=== PATIENT | female | born 1945 | race Caucasian/White ===

== ENCOUNTER 2017-07-31 13:53 | Inpatient (IN) | payer OTHER, SELFPAY ==
[~2017-07-31] VITALS: Ht 157.5 cm; Wt 67.6 kg
[~2017-07-31 13:53] MED LIST: ALENDRONATE SOD70 MG PO; AMITRIPTYLINE H25 M2 PO; APAP500 PO; ASPIR 8181 MG PO; AZITHROMYCIN 2250 MG PO; BAYER CHEWABLE81 MG PO; CALCIUM 600 +1 EAC1 PO; CEFUROXIME250 MG PO; CYMBALTA30 MG PO; FOLIC ACID1 MG PO; GABAPENTIN600 M1 PO; HYDROCODONE-AP1 EAC6 PO; IBUPROFEN 200200 M1 PO; IRON PO; KEPPRA 500 MG500 M1 PO; KEPPRA 500 MG500 M2 PO; LASIX 20 MG TAB20 MG PO; LIDODERM1 EACH TRANSDERM; LISINOPRIL10 MG PO; NEURONTIN 300300 M1 PO; NITROFURANTOIN PO; NITROFURANTOIN100 MG PO; OMEPRAZOLE 20 M20 M1 PO; OXYBUTYNIN 5 MG5 M2 PO; OXYCODONE HCL 55 MG PO; OXYCONTIN10 M1 PO; POTASSIUM20 PO; PROBIOTIC1 EAC1 PO; PROBIOTIC1 EAC2 PO; TOPAMAX 25 MG T25 M1 PO; VITAMIN B-12500 MCG PO; VITAMIN D1000 UNI1 PO
[2017-07-31 13:58] VITALS: BP 144/52
[2017-07-31 15:33] LABS: ABSOLUTE BASOPHILS 0.1 thou/uL (0.0-0.2); ABSOLUTE LYMPHOCYTES 4.2 thou/uL (0.8-5.3); ABSOLUTE MONOCYTES 1.5 thou/uL (0.0-1.2); ABSOLUTE NEUTROPHILS 9.6 thou/uL (1.6-8.1); BASOPHILS 0.7 %; EOSINOPHILS 0.3 %; HEMATOCRIT 41.9 % (37.0-47.0); HEMOGLOBIN 13.7 gm/dL (12.0-15.0); LYMPHOCYTES 27.1 %; MCHC 32.6 g/dL (28.0-37.0); MCV 107.2 fL (80.0-100.0); MONOCYTES 9.8 %; NUCLEATED RBCS 0 /100WBC; PLATELET COUNT* 350 thou/uL (150-400); POLYS 62.1 %; RBC 3.91 mil/uL (4.20-5.00); RDW-CV 14.6 % (10.5-14.5); WBC 15.5 thou/uL (4.0-11.0)
[2017-07-31 15:39] LABS: URINE BLOOD TRACE (Negative); URINE CLARITY CLEAR; URINE COLOR YELLOW; URINE GLUCOSE-RANDOM NEGATIVE (Negative); URINE KETONES NEGATIVE (Negative); URINE LEUKOCYTES-REFLEX TRACE (Negative); URINE NITRITE-REFLEX NEGATIVE (Negative); URINE PROTEIN NEGATIVE (Negative); URINE SPECIFIC GRAVITY 1.015 (1.005-1.030)
[2017-07-31 15:41] LABS: ICTOTEST (BILI CONFIRMATORY) Negative (Negative); URINE BILIRUBIN 1+ (Negative)
[2017-07-31 15:46] LABS: HYALINE CASTS 0-3 Few /LPF (None Seen); MUCUS 0-3 Light strn/LPF (None Seen); SQUAMOUS >10 Many /LPF (0-3)
[2017-07-31 15:47] LABS: URINE RBC 0-2 Rare /HPF (0-2)
[2017-07-31 15:48] LABS: CRYSTALS None Seen /LPF (None Seen); URINE WBC-REFLEX 0-5 Rare /HPF (0-5)
[2017-07-31 15:49] LABS: BACTERIA-REFLEX 1-9 Few /HPF (None Seen)
[2017-07-31 15:54] LABS: ANION GAP 15 mmol/L (7-16); BUN 15 mg/dL (7-18); CALCIUM 9.2 mg/dL (8.5-10.1); CHLORIDE 102 mmol/L (98-107); CO2 23 mmol/L (21-32); CREATININE 0.9 mg/dL (0.6-1.3); GLUCOSE 129 mg/dL (70-99); POTASSIUM 3.8 mmol/L (3.5-5.1); SODIUM 140 mmol/L (136-145)
[2017-07-31 15:56] LABS: AMP/METHAMP Negative (Negative); BARBITURATES Negative (Negative); BENZODIAZEPINES Negative (Negative); COCAINE Negative (Negative); METHADONE Negative (Negative); OPIATES POSITIVE (Negative); PCP Negative (Negative); THC Negative (Negative)
[2017-07-31 15:59] LABS: ALBUMIN 3.6 g/dL (3.4-5.0); ALKALINE PHOSPHATASE 705 U/L (46-116); SGOT 61 U/L (15-37); SGPT 61 U/L (30-65); TOTAL BILIRUBIN 0.6 mg/dL (<0.1-1.0); TOTAL PROTEIN 7.7 g/dL (6.4-8.2); TROPONIN-I LEVEL <0.06 ng/mL (<0.06)
[2017-07-31 19:59] VITALS: BP 142/58
[2017-07-31 20:00] VITALS: BP 143/56
[2017-08-01 00:34] VITALS: BP 124/40
[2017-08-01 04:04] VITALS: BP 126/57
--- NOTE | 2017-08-01 04:12 | NUR ---
RECEIVED REPORT FROM ER NURSE KIZZY AT 193. PT ARRIVED TO UNIT AT 194. PT ALERT, ORIENTED TO SELF ONLY. UNABLE TO VOICE CONCERNS UPON ARRIVAL, NO APPARENT PAIN, EDUCATED PT ON USE OF CALL LIGHT, CALL LIGHT LEFT WITHIN REACH. PT TEMP 100.7 UPON ARRIVAL TO UNIT, OFFERED TYLENOL PO BUT PATIENT REFUSED TO TAKE IT STATING SHE COULD NOT SWALLOW PILLS. DR. GIRON CONTACTED AND NEW ORDERS RECEIVED FOR TYLENOL SUPPOSITORY. MEDICATION ADMINISTERED ORDERED. PT TEMP AT RECHECK 98.7. PT HEARD TALKING TO SELF DURING THE NIGHT, CONTINUES TO BE ORIENTED TO SELF ONLY, FORGETFUL. CALL LIGHT REMAINS WITHIN REACH. ON TELE MONITOR TRACING AFIB THIS SHIFT.
[2017-08-01 05:01] LABS: HEMATOCRIT 35.5 % (37.0-47.0); HEMOGLOBIN 11.6 gm/dL (12.0-15.0); MCH 34.2 pg (26.0-34.0); MCHC 32.6 g/dL (28.0-37.0); MCV 104.9 fL (80.0-100.0); MPV 9.8 fl. (7.2-11.1); RBC 3.39 mil/uL (4.20-5.00); RDW-CV 14.1 % (10.5-14.5); WBC 14.8 thou/uL (4.0-11.0)
[2017-08-01 05:13] LABS: CALCIUM 7.6 mg/dL (8.5-10.1); CREATININE 0.8 mg/dL (0.6-1.3); POTASSIUM 3.6 mmol/L (3.5-5.1)
--- NOTE | 2017-08-01 06:59 | NUR ---
PO ACETAMINOPHEN ADMINISTERED FOR PAIN THIS SHIFT, PT ABLE TO SWALLOW LIQUIDS WITHOUT COUGHING, PT STATED SHE COULD SWALLOW PILLS, NO CHOCKING OBSERVED. PT CONVERTED TO SINUS RHYTHM AT 0552. CONTINUES TO TRACE SINUS RHYTHM WITH PVCS THIS SHIFT. PT CONTINUES TO BE CONFUSED, ORIENTED TO SELF ONLY. SEIZURE PRECAUTIONS IN PLACE FOR HX OF SEIZURES. PT VOICED NO CONCERNS THIS SHIFT. CALL LIGHT WITHIN REACH. FALL PRECAUTIONS IN PLACE.
[2017-08-01 08:00] VITALS: BP 141/61
[2017-08-01 11:59] VITALS: BP 137/57
[2017-08-01 16:49] VITALS: BP 131/68
--- NOTE | 2017-08-01 17:59 | NUR ---
PATIENT RESTING IN BED. PATINET IS AGGITATED AT TIMES AND IT IS ACCOMPANIED BY CONFUSION. FREQUENTLY CALLS OUT FOR FAMILY MEMBERS AND NEEDS FREQUENT REORIENTATION. AOX SELF ONLY. VITAL SIGNS STABLE AND PATINET IN NOAPPARENT SIGNS OF DISTRESS. HOURLY ROUNDING COMPLETED FOR PATIENT SAFETY. SZ PRECAUTIONS IN PLACE FOR HISTORY OF SZ ACTIVITY.
[2017-08-01 20:00] VITALS: BP 143/48
--- NOTE | 2017-08-01 22:50 | NUR ---
ASSUMED CARE OF PT AT 1930, NURSING ASSESSMENT COMPLETED AT START OF SHIFT, PT VOICED NO CONCERNS, CONTINUES ON TELE MONITOR TRACING SR WITH PVCS. PT CONTINES TO BE CONFUSED, ORIENTED TO SELF ONLY. FALL PRECAUTIONS IN PLACE, SEIZURE PRECAUTIONS IN PLACE, CALL LIGHT WITHIN REACH.
[2017-08-02 00:12] VITALS: BP 128/48
[2017-08-02 04:16] VITALS: BP 140/58
--- NOTE | 2017-08-02 05:42 | NUR ---
Assumed care of patient at 2315. New IV 22 G was started in RAC. She has been alert and oriented x 4. Dominguez is draining well. She has slept well.
--- NOTE | 2017-08-02 05:59 | NUR ---
Patient refused her lab draw this am.
[2017-08-02 07:15] LABS: HEMATOCRIT 36.3 % (37.0-47.0); HEMOGLOBIN 12.1 gm/dL (12.0-15.0); MCH 35.4 pg (26.0-34.0); MCHC 33.4 g/dL (28.0-37.0); RBC 3.42 mil/uL (4.20-5.00); RDW-CV 14.3 % (10.5-14.5); WBC 10.6 thou/uL (4.0-11.0)
[2017-08-02 07:32] LABS: CREATININE 0.7 mg/dL (0.6-1.3); MAGNESIUM 1.9 mg/dL (1.8-2.4); POTASSIUM 3.1 mmol/L (3.5-5.1)
[2017-08-02 08:00] VITALS: BP 125/43
--- NOTE | 2017-08-02 08:00 | NUR ---
ASSUMED PT. CARE AND RECIEVED REPORT AT 0730. PT A/OX TO SELF/PLACE, WITH NOTED CONFUSION. ON RA @ 99%. MONITOR ON TRACING SR. PALMER NOTED TO DD. RIGHT AC IV APPEARS TO BE INFILTRATED AT THIS TIME, IVF STOPPED. FULL ASSESSMENT COMPLETED, REFER TO CHARTING. PT. WANTING TO TALK TO DAUGHTER, ASSISTED PT. DIALING PHONE. PT. APPEARING UPSET DURING CARE, WHEN ASKED QUESTIONS REFUSING TO RESPONDE AT TIMES, JUST STARING AT STAFF. FALL PRECAUTIONS IN PLACE, CALL LIGHT IN REACH, WILL CONTINUE WITH PLAN OF CARE.
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
[2017-08-02 11:58] VITALS: BP 122/47
--- NOTE | 2017-08-02 12:53 | EKG ---
[place] [address] ELECTROCARDIOGRAM REPORT Name: SD THOMASON Room: [address] ADM IN M.R.#: [id number] Admission: 07/31/17 Attend Phys: Cira Cahmpion Discharge: Date of : 41 Report #: [id number] THIS REPORT FOR: //name// [facility] ED Test Date: 2017-07-31 Test Time: 14:55:02 Pat Name: SD THOMASON Department: Room: [facility] Gender: F Automobile Mechanic Helper: : 1945 Requested By: Akira Wilson Order Number: [id number] MD: Sarbjit Moore Measurements Intervals [place] Rate: 99 P: 62 TX: 207 QRS: 41 QRSD: 86 T: 64 QT: 356 QTc: 457 Interpretive Statements nsr, artifact Borderline prolonged TX interval Compared to ECG 07/04/2017 07:31:33 Sinus rhythm no longer present Electronically Signed On 08-02-2017 12:52:51 CLIENT SOLUTIONS DIRECTOR by Sarbjit Moore [email or web address] <ELECTRONICALLY SIGNED> By: Sarbjit Moore MD, FACC 08/02/17 1252 1455 1455 Sarbjit Moore MD, [facility] /EPI
--- NOTE | 2017-08-02 13:06 | EKG ---
[place] [address] ELECTROCARDIOGRAM REPORT Name: KATELINSD CARRIE Room: [address] ADM IN M.R.#: [id number] Admission: 07/31/17 Attend Phys: Cira Champion Discharge: Date of : 41 Report #: [id number] THIS REPORT FOR: //name// [facility] Test Date: 2017-07-31 Test Time: 21:38:29 Pat Name: SD THOMASON Department: Room: [address] Gender: F Repairer Art Objects: JEAN : 1945 Requested By: Roseline Keller Order Number: [id number] Reading MD: Sarbjit Moore Measurements Intervals [place] Rate: 102 P: GA: QRS: 11 QRSD: 92 T: 83 QT: 394 QTc: 514 Interpretive Statements nsr Minimal ST depression, anterolateral leads Prolonged QT interval Artifact in lead(s) aVR,V1,V2,V4,V5,V6 Compared to ECG 07/04/2017 07:31:33 ST (T wave) deviation now present Prolonged QT interval now present Sinus rhythm no longer present Electronically Signed On 08-02-2017 13:05:55 COMPOSITION FLOOR LAYER by Sarbjit Moore [email or web address] <ELECTRONICALLY SIGNED> By: Sarbjit Moore MD, FACC 08/02/17 1305 2138 Sarbjit Moore MD, FACC /EPI
--- NOTE | 2017-08-02 15:43 | NUR ---
CM ASSESSMENT: Pt is A&O. Resides at home with her . Pt recently discharged from the hospital on 07/07 to [facility]. Pt states that she was discharged to home from on 07/27. Pt stated that she was discharged with , but does not remember the name of the agency. CM left message for admissions at to see what HH company was ordered. Pt states that she has a wc, walker and cane at home, Pt states that she has primarily been using her wc recently. Pt and use the [employer] bus for transportation. Pt stated that her goal is to return home once medically stable. Pt does not want to return to a skilled facility. Following for dc needs.
[2017-08-02 16:44] VITALS: BP 100/52
--- NOTE | 2017-08-02 18:06 | NUR ---
PT. APPETITE POOR AT LUNCH, HOWEVER SHE DID EAT PARTIAL DINNER. PT. WORKED WITH PHYSICAL THERAPY, AMBULATED NEFF WITH STANDBY ASSIST AND WALKER. PT. HAS BEEN INCONT. OF BOWEL MULTIPLE TIMES, STOOLS ARE LOOSE BUT DO NOT LOOK/SMELL SUSPICIOUS. PT. CONTINUES TO BE CONFUSED AT TIMES, MAKING COMMENTS ABOUT STAFF BEING "THE MEAN ONE". PT. SPOUSE HERE TO VISIT TODAY, HAD OPPERTUNITY TO SPEAK WITH DR. GIRON WHILE HERE. HOURLY ROUNDING COMPLETED THROUGH OUT THE DAY FOR PT. SAFETY.
[2017-08-02 20:00] VITALS: BP 124/53
[2017-08-03] VITALS: BP 128/55
--- NOTE | 2017-08-03 02:35 | NUR ---
PATIENT RESTING WITHOUT COMPLAINTS. PATIENT HAD SHORT RUN OF A-FLUTTER EKG REVEALED A-FIB DID THE TELE SHORTLY AFTER. PATIENT WITH SOME ANXIETY, LABORED BREATHING BUT SATURATION 97 ON RA. WILL CONT. TO MONITOR. ONE STOOL LOOSE. TEMP 99.4, CONT. TO MONITOR. NONCOMPLIANT WITH PILLS AT TIMES. MUCH ENCOURAGEMENT TO COOPERATE. CONT. BED IN LOW POSITION, ALARM BILINGUAL SECRETARY LIGHT IN REACH.
[2017-08-03 04:00] VITALS: BP 112/61
[2017-08-03 08:00] VITALS: BP 125/52
--- NOTE | 2017-08-03 08:25 | NUR ---
RECEIVED REPORT. ASSUMED CARE OF PT AT 0730. PT A&O X4. VSS, O2 SAT 99% ON ROOM AIR. IRON PLASTIC BULLET MAKER IN PLACE TRACING SR. IV SALINE LOCKED. AM ASSESSMENT AND VITALS COMPLETED CHARTED. PT DENIES PAIN AT THIS TIME. PT INFORMED OF PLAN OF CARE, PT COMMUNICATES UNDERSTANDING. PT EATING AND DRINKING WITHOUT ISSUE. SEIZURE PRECAUTIONS IN PLACE. PT IMPULSIVE AT TIMES, HIGH FALL RISK PRECAUTIONS IN PLACE. CALL LIGHT IS WITHIN REACH. WILL CONTINUE TO MONITOR.
[2017-08-03] MEDS ORDERED: CEFUROXIME250 MG PO (14:04)
[2017-08-03] MEDS ORDERED: BACID CAPLET1 EACH PO (14:05)
[2017-08-03 14:20] VITALS: BP 125/52
--- NOTE | 2017-08-03 14:24 | NUR ---
Pt discharging to home today. Faxed resumption orders to Pending sale to [facility]. Family in room and will provide transportation. No further needs.
--- NOTE | 2017-08-03 15:38 | EKG ---
[place] [address] ELECTROCARDIOGRAM REPORT Name: KATELINSD BUTLER Room: [address] ADM IN M.R.#: [id number] Admission: 07/31/17 Attend Phys: Cira Champion Discharge: Date of : 41 Report #: [id number] THIS REPORT FOR: //name// [facility] Test Date: 2017-08-03 Test Time: 02:01:33 Pat Name: SD THOMASON Department: Room: [address] Gender: F Associate Professor Of Geology: 27 : 1945 Requested By: Roseline Keller Order Number: [id number] Reginaldo MD: Jaylon Colon Measurements Intervals [place] Rate: 92 P: NC: QRS: 34 QRSD: 79 T: -81 QT: 325 QTc: 402 Interpretive Statements Atrial fibrillation Borderline repolarization abnormality Compared to ECG 07/31/2017 21:38:29 ST (T wave) deviation no longer present Electronically Signed On 08-03-2017 15:38:48 AVIONICS ELECTRICAL ENGINEER by Jaylon Colon [email or web address] <ELECTRONICALLY SIGNED> By: Jaylon Colon MD, [facility] 08/03/17 1538 0 0 Jaylon Colon MD, FAC /EPI
--- NOTE | 2017-08-03 16:30 | NUR ---
DISCHARGE ORDERS RECEIVED. DISCHARGE COMPLETED CHARTED. DISCHARGE SUMMARY AND CARE NOTES GIVEN TO THE PT - PT COMMUNICATES UNDERSTANDING. HOME HEALTH SET UP AND PT AWARE THAT HH WILL CALL TO SET UP APPOINTMENTS. SCRIPTS SENT TO PHARMACY. IV AND PC TECHNICIAN REMOVED. PALMER REMOVED - OUTPUT 400CC. ALL BELONGINGS GATHERED AND SENT WITH THE PT. DAUGHTERS AT BEDSIDE. VSS AT TIME OF DC. PT EATING AND DRINKING WITHOUT ISSUE. PT AMBULATED IN HALLWAY WITH PT PRIOR TO DC WITHOUT ISSUE. PT REMAINED A&O THROUGHOUT THE SHIFT, ANXIOUS TO GO HOME. HOURLY ROUNDING WAS PERFORMED. PT LEFT UNIT IN WHEEL CHAIR WITH NURSING STAFF. PT LEFT FACILITY WITH DAUGHTERS BY CAR.
== END 2017-08-03 16:15 | disposition home health service (06) | DRG 871 ==
LOC: M.ERS 13:53 → M.2W 17:45 → M.TBA-ER 17:45 → M.2W 20:09
PROVIDERS: Internal Medicine; Physician Assistant; ADMIT Internal Medicine
DX: A41.9 Sepsis, unspecified organism (principal); G93.41 Metabolic encephalopathy; N39.0 Urinary tract infection, site not specified; G40.909 Epilepsy, unspecified, not intractable, without status epilepticus; E87.6 Hypokalemia; F32.9 Major depressive disorder, single episode, unspecified; M81.0 Age-related osteoporosis without current pathological fracture; Z87.891 Personal history of nicotine dependence; Z90.81 Acquired absence of spleen; Z79.82 Long term (current) use of aspirin; Z79.899 Other long term (current) drug therapy; Z28.21 Immunization not carried out because of patient refusal

== ENCOUNTER 2017-08-23 12:06 | Inpatient (IN) | payer OTHER, SELFPAY ==
[~2017-08-23] VITALS: Ht 157.5 cm; Wt 56.2 kg
[~2017-08-23 12:06] MED LIST changes: +BACID CAPLET1 EACH PO
[2017-08-23 12:13] VITALS: BP 115/59
[2017-08-23] MEDS ORDERED: BACTRIM DS TAB1 EACH PO (12:17)
[2017-08-23 13:28] LABS: URINE BLOOD 3+ (Negative); URINE CLARITY CLOUDY; URINE COLOR YELLOW; URINE GLUCOSE-RANDOM NEGATIVE (Negative); URINE KETONES 2+ (Negative); URINE LEUKOCYTES-REFLEX 1+ (Negative); URINE NITRITE-REFLEX NEGATIVE (Negative); URINE PROTEIN 1+ (Negative); URINE SPECIFIC GRAVITY 1.025 (1.005-1.030); URINE UROBILINOGEN 0.2 E.U./dl (0.2-1.0)
[2017-08-23 13:31] LABS: ICTOTEST (BILI CONFIRMATORY) Positive (Negative); URINE BILIRUBIN 3+ (Negative)
[2017-08-23 13:33] LABS: ANION GAP 18 mmol/L (7-16); BUN 22 mg/dL (7-18); CALCIUM 9.1 mg/dL (8.5-10.1); CHLORIDE 97 mmol/L (98-107); CO2 18 mmol/L (21-32); CREATININE 1.1 mg/dL (0.6-1.3); GLUCOSE 93 mg/dL (70-99); SODIUM 133 mmol/L (136-145)
[2017-08-23 13:34] LABS: POTASSIUM 5.2 mmol/L (3.5-5.1)
[2017-08-23 13:41] LABS: ALBUMIN 3.6 g/dL (3.4-5.0); ALKALINE PHOSPHATASE 211 U/L (46-116); SGOT 34 U/L (15-37); SGPT 19 U/L (30-65); TOTAL BILIRUBIN 0.4 mg/dL (<0.1-1.0); TOTAL PROTEIN 7.5 g/dL (6.4-8.2); TROPONIN-I LEVEL <0.06 ng/mL (<0.06)
[2017-08-23 13:48] LABS: SQUAMOUS >10 Many /LPF (0-3)
[2017-08-23 13:50] LABS: URINE RBC 3-10 Few /HPF (0-2); URINE WBC-REFLEX >25 Many /HPF (0-5)
[2017-08-23 13:51] LABS: BACTERIA-REFLEX None Seen /HPF (None Seen); CASTS None Seen /LPF (None Seen); CRYSTALS None Seen /LPF (None Seen)
[2017-08-23 14:26] LABS: ABSOLUTE BASOPHILS 0.1 thou/uL (0.0-0.2); ABSOLUTE LYMPHOCYTES 4.8 thou/uL (0.8-5.3); ABSOLUTE MONOCYTES 0.6 thou/uL (0.0-1.2); ABSOLUTE NEUTROPHILS 4.9 thou/uL (1.6-8.1); EOSINOPHILS 0.4 %; HEMATOCRIT 43.7 % (37.0-47.0); LYMPHOCYTES 45.9 %; MCH 34.7 pg (26.0-34.0); MCHC 34.4 g/dL (28.0-37.0); MCV 100.9 fL (80.0-100.0); MONOCYTES 5.9 %; MPV 9.9 fl. (7.2-11.1); NUCLEATED RBCS 0 /100WBC; PLATELET COUNT* 279 thou/uL (150-400); POLYS 46.8 %; RBC 4.33 mil/uL (4.20-5.00); WBC 10.6 thou/uL (4.0-11.0)
[2017-08-23 17:34] VITALS: BP 116/75
[2017-08-23 17:59] VITALS: BP 108/64
--- NOTE | 2017-08-23 18:08 | NUR ---
PATIENT ADMITTED FROM ER TO ROOM 105. ALERT AND ORIENTED. H/O OF CONFUSION/ENCEPHALOPATHY WITH UTI. PATIENT HAVING LIQUID DIARRHEA STOOL UPON ARRIVAL. PATIENT REPORTS DIARRHEA X1 MONTH MULTIPLE TIMES A DAY, PT REPORTS BEING ON MULTIPLE ANTIBIOTICS OVER LAST COUPLE OF MONTHS. PLACED BEDPAN TO TRY AND OBTAIN C-DIFF SAMPLE. CRISTO AREA RED BUT BLANCHABLE, OPEN WOUND RIGHT BUTTOCKS. VSS. REST OF SKIN INTACT. ADMISSION HISTORY AND ASSESSMENT CHARTED. POOR HISTORIAN. PLACED IN SPECIAL CONTACT AT THIS TIME. BED ALARM SET. WILL CONTINUE TO MONITOR.
[2017-08-23 20:40] VITALS: BP 93/41
[2017-08-24 00:57] VITALS: BP 157/73
[2017-08-24 04:39] LABS: CALCIUM 8.2 mg/dL (8.5-10.1); CREATININE 0.9 mg/dL (0.6-1.3); POTASSIUM 4.6 mmol/L (3.5-5.1)
[2017-08-24 04:40] LABS: ABSOLUTE BASOPHILS 0.1 thou/uL (0.0-0.2); ABSOLUTE EOSINOPHILS 0.1 thou/uL (0.0-0.7); ABSOLUTE LYMPHOCYTES 4.2 thou/uL (0.8-5.3); ABSOLUTE MONOCYTES 0.6 thou/uL (0.0-1.2); BASOPHILS 0.9 %; EOSINOPHILS 1.3 %; HEMATOCRIT 37.9 % (37.0-47.0); LYMPHOCYTES 46.7 %; MCHC 33.9 g/dL (28.0-37.0); MCV 103.2 fL (80.0-100.0); MONOCYTES 6.5 %; MPV 10.9 fl. (7.2-11.1); NUCLEATED RBCS 0 /100WBC; PLATELET COUNT* 216 thou/uL (150-400); POLYS 44.6 %; RBC 3.67 mil/uL (4.20-5.00); RDW-CV 13.5 % (10.5-14.5); WBC 8.9 thou/uL (4.0-11.0)
[2017-08-24 04:53] LABS: HEMOGLOBIN 12.9 gm/dL (12.0-15.0)
--- NOTE | 2017-08-24 05:12 | NUR ---
PATIENT ALERT AND ORIENTED. VITALS STABLE. RA. FLUIDS INFUSING PER ORDER. DENIES PAIN. NO STOOLS DURING MY SHIFT. C DIFF PENDING. ON SPECIAL CONTACT ISOLATION. PALMER TO DEPENDENT DRAINAGE. HOURLY ROUNDS. BED ALARM IN USE. NURSING WILL CONTINUE TO MONITOR.
[2017-08-24 08:34] VITALS: BP 130/112
--- NOTE | 2017-08-24 11:56 | NUR ---
PT.UP IN RECLINER. WAS ALERT AND ORIENTED. STATED SHE LIVES WITH HER . SHE MAINLY IS IN HER WC AT HOME. CAN WALK SHORT DISTANCES WITH WALKER. SHE SAID SHE HAS SEIZURES AND FREQUENT FALLS. SHE HAS BEEN ON SERVICE WITH [facility] . CONFIRMED WITH LIZZ/INNA THAT PT.IS CURRENT WITH THEM. THEY HAVE 4 CHILDREN, BUT 'THEY DO WHAT THEY WANT.' ONE LIVES IN [place]. SHE WAS AT [facility] IN [place]. SHE LIKED IT THERE. SHE SAID SHE IS IN THE PROCESS OF TRYING TO GET ON MEDICAID. CM WILL FOLLOW AND ASSIST NEEDED.
[2017-08-24 16:57] VITALS: BP 92/52
--- NOTE | 2017-08-24 17:22 | NUR ---
ASSUMED CARE OF PATIENT AFTER MORNING REPORT. ALERT AND OREINTED X4. ASSESSMENT COMPLETED AND CHARTED. VSS ON ROOM AIR. PATIENT RECIEVED ANTIBIOTICS AND FLUIDS ORDERED. IV INFILTRATED AND DOCTOR ORDERED PO ANTIBIOTICS AND DC OF FLUIDS SO AN IV WOULD NOT HAVE TO BE STARTED AGAIN. PATIENT HAS HAD NO COMPLAINTS OF NAUSEA OR PAIN THIS SHIFT. RESTING COMFORTABLY IN BED AT THIS TIME. HOURLY ROUNDS HAVE BEEN MAINTAINED. CALL LIGHT IS WITHIN REACH. NURSING WILL CONTINUE TO MONITOR.
[2017-08-24 21:30] VITALS: BP 108/52
[2017-08-25 00:22] VITALS: BP 100/50
[2017-08-25 04:03] LABS: ABSOLUTE BASOPHILS 0.1 thou/uL (0.0-0.2); ABSOLUTE EOSINOPHILS 0.1 thou/uL (0.0-0.7); ABSOLUTE MONOCYTES 0.6 thou/uL (0.0-1.2); ABSOLUTE NEUTROPHILS 8.7 thou/uL (1.6-8.1); BASOPHILS 0.5 %; EOSINOPHILS 0.6 %; HEMATOCRIT 40.1 % (37.0-47.0); MCH 34.2 pg (26.0-34.0); MCHC 32.5 g/dL (28.0-37.0); MCV 105.2 fL (80.0-100.0); MONOCYTES 4.3 %; MPV 10.7 fl. (7.2-11.1); NUCLEATED RBCS 0 /100WBC; PLATELET COUNT* 198 thou/uL (150-400); POLYS 64.6 %; RBC 3.81 mil/uL (4.20-5.00); RDW-CV 14.1 % (10.5-14.5); WBC 13.5 thou/uL (4.0-11.0)
[2017-08-25 04:20] LABS: CALCIUM 8.8 mg/dL (8.5-10.1); CREATININE 0.9 mg/dL (0.6-1.3)
[2017-08-25 04:21] LABS: POTASSIUM 3.1 mmol/L (3.5-5.1)
--- NOTE | 2017-08-25 04:46 | NUR ---
PATIENT ALERT AND ORIENTED. VITALS STABLE. RA. REPOSITIONED EVERY TWO HOURS. NEGATIVE FOR C DIFF. NO BOWEL MOVEMENTS DURING MY SHIFT. PALMER TO DEPENDENT DRAINAGE. HOURLY ROUNDS. BED ALARM IN USE. NURSING WILL CONTINUE TO MONITOR.
[2017-08-25 07:55] VITALS: BP 98/41
--- NOTE | 2017-08-25 16:18 | NUR ---
FAXED SNF REFERRAL TO [facility] [phone].
[2017-08-25 16:50] VITALS: BP 101/53
--- NOTE | 2017-08-25 18:32 | NUR ---
ASSUMED CARE OF PATIENT AFTER MORNING REPORT. ALERT AND ORIENTED X4. ASSESSMENT COMPLETED AND CHARTED. VSS ON ROOM AIR. PATIENT HAS HAD NO COMPLAINTS OF NAUSEA THIS SHIFT. PATIENT DOES COMPLAIN OF MIGRAINES AND HAS BEEN GIVEN TOPOMAX ORDERED. PATIENT IS CURRENTLY UNDERGOING BOWEL PREP FOR A COLONOSCOPY AND EGD SCHEDULED FOR TOMORROW. PATIENT IS ON CLEARS BUT WILL BE NPO AFTER MIDNIGHT. HOURLY ROUNDS HAVE BEEN MAINTAINED. CALL LIGHT IS WITHIN REACH. NURSING WILL CONTINUE TO MONITOR.
[2017-08-26 04:19] VITALS: BP 121/55
--- NOTE | 2017-08-26 04:36 | NUR ---
PATIENT ALERT AND ORIENTED X4. TOLERATED BOWEL PREP, MULTIPLE LIQUID STOOLS OVERNIGHT, LIGHT YELLOW OUTPUT. UP WITH ASSIST X1. REPOSITIONED FOR COMFORT. VITALS STABLE ON ROOM AIR. WILL CONTINUE TO MONITOR.
[2017-08-26 07:51] VITALS: BP 121/55
[2017-08-26 08:51] VITALS: BP 96/39
--- NOTE | 2017-08-26 10:24 | EKG ---
[place] [address] ELECTROCARDIOGRAM REPORT Name: SD THOMASON Room: [address] ADM IN M.R.#: [id number] Admission: 08/23/17 Attend Phys: Leon Bazan Discharge: Date of : 41 Report #: [id number] THIS REPORT FOR: //name// [facility] Test Date: 2017-08-26 Test Time: 08:15:58 Pat Name: SD THOMASON Department: Room: [address] Gender: F Hand Paster: MI : 1945 Requested By: Lorena Ramirez Order Number: [id number] Reginaldo MD: Alex Davis Measurements Intervals [place] Rate: 87 P: 42 ME: 196 QRS: 29 QRSD: 87 T: 75 QT: 391 QTc: 471 Interpretive Statements Sinus rhythm nonspecific t wave changes Atrial premature complex Borderline low voltage, extremity leads Baseline wander in lead(s) V1 Compared to ECG 08/03/2017 02:01:33 Atrial fibrillation no longer present Electronically Signed On 08-26-2017 10:24:08 CANDY WAFFLE ASSEMBLER by Alex Davis [email or web address] <ELECTRONICALLY SIGNED> By: Alex Davis MD, FACC 08/26/17 1024 Alex Davis MD, [facility] /EPI
[2017-08-26 11:30] VITALS: BP 103/45
--- NOTE | 2017-08-26 11:37 | NUR ---
PATIENT ARRIVED BACK ON THE UNIT AT 1130 FROM PACU AFTER HAVING HER COLONOSCOPY. ALERT AND ORIENTED. VSS ON ROOM AIR. CALL LIGHTIS WITHIN REACH. NURSING WILL CONTINUE TO MONITOR.
[2017-08-26 12:20] VITALS: BP 103/45
--- NOTE | 2017-08-26 13:41 | NUR ---
Nutrition: Pt assessed for pressure ulcer risk. Per [employer], buttock is just pink. Pt just had a colonoscopy. Albumin 3.6, no nutritionally significantlbas. Wt: 124#. Appears at low nutrition risk at this time. Please advance diet as tolerated.
[2017-08-26] MEDS ORDERED: BENTYL 10 MG CA10 M1 PO (13:56)
[2017-08-26] MEDS ORDERED: FLORASTOR250 MG PO (14:09)
--- NOTE | 2017-08-26 15:07 | NUR ---
PATIENT WAS APPROVED FOR DISCHARGE TO [facility]. WAS NOTIFIED THAT HIS WOULD BE LEAVING FOR THE FACILITY AT 1600 BUT HE DOES NOT WANT HER TO GO THERE THE COPAY IS TOO HIGH. STATED THAT HE WOULD NOT BE PAYING THAT COPAY AND THAT HE WOULD HAVE THE PATIENTS DAUGHTER, PHILIPPE, COME TO PICK HER UP AND BRING HER HOME WHERE HE SAYS HE WILL TAKE CARE OF HER. I DO NOT FEEL THAT THIS IS A SAFE OPTION THE PATIENTS HAS DIFFICULTY AMBULATING AND WITH THE PATIENTS WEAKEND CONDITION, THIS WOULD BE AN UNSAFE CHOICE AT THIS TIME. DR STALEY WAS NOTIFIED OF THE SITUATION AND HAS BEEN ASKED TO WRIE FOR HOME HEALTH ORDERS, IS AGREEABLE TO THIS OPTION.
[2017-08-26 15:57] VITALS: BP 103/45
--- NOTE | 2017-08-26 16:30 | NUR ---
ASSUMED CARE OF PATIENT AFTER MORNING REPORT. ALERT AND ORIENTED X4. ASSESSMENT COMPLETED AND CHARTED. VSS ON ROOM AIR. PATIENT HAS HAD NO COMPLAINTS OF NAUSEA OR PAIN THIS SHIFT. PATIENT HAD A CENTRAL LINE PLACED BECAUSE PERIPHERAL IV ACCESS WAS UNSUCCESSFUL. PATIENT HAD COLONOSCOPY TODAY WITH REMOVAL OF NUMEROUS POLYP. PATIENT DISCHARGED AT 1615 WITH DAUGHTER AND EXTENDED FAMILY AND WAS TAKEN HOME WITH REFERRAL FOR HOME HEALTH. ALL PERSONAL BELONGINGS LEFT WITH PATIENT. PRESCRIPTIONS AND DISCHARGE INFORMATION SENT WITH PATIENT UPON DISCHARGE.
--- NOTE | 2017-08-26 16:34 | NUR ---
CM RECIEVED A CALL FROM ADRIENNE AT [facility] AND SHE INFORMS THAT THE FACILITY IS ABLE TO ACCEPT THE PATIENT, BUT SHE WILL HAVE A CO-PAY OF $160 PER DAY. CM SPOKE TO THE PATIENT AND HER TO INFORM OF THIS. PATIENT STATES THAT IT IS OK AND SHE STILL WANTS TO SO TO [facility]. CM CONTATCED THE PATIENTS AND HE INFORMS THAT HE IS NOT ABLE TO PAY THE CO-PAY AMOUNT AND WOULD LIKE FOR THE PATIENT TO RETURN HOME. CM INFORMED THE PATIENT AND HER OF THE BENEFITS OF SKILLED AND WHY IT WAS IMPORTANT FOR HER TO GO. CM INFORMED THE RN IN CHARGE OF THE PATIENT OF THIS. PATIENT TO DISCHARGE HOME TODAY WITH [facility] . CM INFORMED ADRIENNE AT [facility] OF THIS AND SHE INFORMS THAT IF THE PATIENT AND DECIDE THAT SKILLED IS NEED THAT THEY WILL ACCEPT THE PATIENT OVER THE WEEKEND. CM INFORMED THE PATIENT AND OF THIS. CM WILL REMAIN AVIALABLE TO ASSIST AND FOLLOW NEEDED.
--- NOTE | 2017-08-31 16:13 | CON ---
[address] [address] CONSULTATION Name: SD THOMASON Room: [address] IN M.R.#: [id number] Admission: 08/23/17 Attend Phys: Leon Bazan Discharge: 08/26/17 Date of : 41 Report #: [id number] THIS REPORT FOR: //name// CC: Nicole Macario DATE OF SERVICE: 08/25/2017 ADDENDUM REASON FOR CONSULT: Abdominal pain, diarrhea, leukocytosis, incontinence and dysphagia. The patient with history of colonoscopy 3-4 years ago who reports that they did not find anything significant during her colonoscopy. She complains of diarrhea, abdominal pain, which is left-sided and incontinence. She also reports dysphagia to solids. She complains of abdominal pain and her belly is mildly tender around the periumbilical region. I reviewed labs and imaging and we will perform upper and lower endoscopy tomorrow to further evaluate her symptoms. <ELECTRONICALLY SIGNED> By: Glenn Vick MD 08/31/17 1613 1627 1910Glenn Vick MD /nt
--- NOTE | 2017-08-31 16:13 | CON ---
[address] [address] CONSULTATION Name: SD THOMASON Room: [address] IN M.R.#: [id number] Admission: 08/23/17 Attend Phys: Leon Bazan Discharge: 08/26/17 Date of : 41 Report #: [id number] THIS REPORT FOR: //name// CC: Jaylon Macario DICTATED BY: Lorena Ramirez [facility] DATE OF SERVICE: 08/25/2017 Please note at the time of this dictation, the patient was seen and physically examined by myself. REASON FOR CONSULTATION: Diarrhea and incontinence. HISTORY OF PRESENT ILLNESS: This pleasant 72-year-old female who presented to the Emergency Room with urinary retention and inability to urinate. She had been currently being treated for UTI and was on Bactrim and she felt like she was getting more confused with this UTI and was not tracking very well. The patient states that she has been having loose bowels almost diarrhea, you know, 4-8 times a day for greater than the past month. Her C. diff did come back negative. The patient states she did have a colonoscopy years ago and she did state was normal except she did have some polyps, otherwise was normal. She had an EGD, but she cannot remember findings regarding that. She thinks it was all normal. The patient had seen consultants in Gastroenterology and we will obtain those records as soon as possible for our review prior to her colonoscopy tomorrow. The patient denies any bright red blood or any melena in her stools and denies taking any anti-inflammatory medicines on a regular basis. It was noted in our chart that the patient had contacted our office back in March for referral for anemia and we were unable to ever contact her. There was no listed current number. ALLERGIES: No known drug allergies. MEDICATIONS: From home include currently Bactrim, Keppra, Topamax, OxyContin, folic acid, Elavil, Lasix, gabapentin, alendronate and Cymbalta. PAST MEDICAL HISTORY: Seizure disorder, anemia, osteoporosis and recurrent UTIs. PAST SURGICAL HISTORY: She had a splenectomy due to trauma. FAMILY HISTORY: The patient was adopted. SOCIAL HISTORY: She lives with her . Denies any alcohol, [place] [address] CONSULTATION Name: SD THOMASON Room: [address]#: [id number] Admission: 08/23/17 Attend Phys: Leon Bazan Discharge: 08/26/17 Date of : 41 Report #: [id number] illegal drug use. REVIEW OF SYSTEMS: Twelve-point review of systems is essentially negative except what is mentioned in the HPI. PHYSICAL EXAMINATION: VITAL SIGNS: Temperature 36.7, pulse 86, respirations 16, blood pressure 98/41. HEART: Regular rate and rhythm. LUNGS: Clear. ABDOMEN: Soft, positive bowel sounds in all 4 quadrants with some slight tenderness noted to palpation particularly on the left side. IMPRESSION: 1. Diarrhea. 2. Incontinence. 3. Leukocytosis. 4. Some abdominal pain. 5. Recurrent urinary tract infection. PLAN: 1. Colonoscopy tomorrow with Dr. Pulido. 2. Obtain EGD and colonoscopy records from [facility]. 3. Further recommendations to be made once the procedure has been performed. Thank you for allowing us to participate in this patient's care. Please do not hesitate to call with any questions in regard to this consult. <ELECTRONICALLY SIGNED> By: Glenn Vick MD 08/31/17 1613 1509 [id number] Vick MD /nt
== END 2017-08-26 16:15 | DRG 689 ==
LOC: M.ERS 12:06 → M.TBA-ER 15:33 → M.ORTHSURG 15:33
PROVIDERS: Physician Assistant; ADMIT Internal Medicine
PROC: 0DBL8ZX Excision of Transverse Colon, Via Natural or Artificial Opening Endoscopic, Diagnostic (ICD-10-PCS; principal; 2017-08-26)
PROC: 0DBH8ZX Excision of Cecum, Via Natural or Artificial Opening Endoscopic, Diagnostic (ICD-10-PCS; principal; 2017-08-26)
PROC: 0DBK8ZX Excision of Ascending Colon, Via Natural or Artificial Opening Endoscopic, Diagnostic (ICD-10-PCS; principal; 2017-08-26)
DX: N39.0 Urinary tract infection, site not specified (principal); G93.40 Encephalopathy, unspecified; E87.1 Hypo-osmolality and hyponatremia; N18.3 Chronic kidney disease, stage 3 (moderate); E87.5 Hyperkalemia; F32.9 Major depressive disorder, single episode, unspecified; E86.0 Dehydration; R19.7 Diarrhea, unspecified; G40.909 Epilepsy, unspecified, not intractable, without status epilepticus; B95.2 Enterococcus as the cause of diseases classified elsewhere; R33.9 Retention of urine, unspecified; K63.5 Polyp of colon; K64.8 Other hemorrhoids; M81.0 Age-related osteoporosis without current pathological fracture; R32 Unspecified urinary incontinence; Z79.899 Other long term (current) drug therapy; Z87.891 Personal history of nicotine dependence

== ENCOUNTER 2017-11-01 17:23 | Emergency (ER) | payer OTHER, SELFPAY ==
[~2017-11-01] VITALS: Ht 157.5 cm; Wt 54.4 kg
[~2017-11-01 17:23] MED LIST changes: -FOSAMAX 70 MG T70 MG PO; -NEURONTIN 300M300 M2 PO; -PERCOCET 5-3251 EACH PO; -PREDNISONE 20 M20 M1 PO
[2017-11-01] MEDS ORDERED: FOSAMAX 70 MG T70 MG PO (17:43)
[2017-11-01] MEDS ORDERED: NEURONTIN 300M300 M2 PO (17:43)
[2017-11-01 17:59] LABS: ABSOLUTE BASOPHILS 0.1 thou/uL (0.0-0.2); ABSOLUTE EOSINOPHILS 0.1 thou/uL (0.0-0.7); ABSOLUTE LYMPHOCYTES 4.5 thou/uL (0.8-5.3); ABSOLUTE MONOCYTES 1.4 thou/uL (0.0-1.2); ABSOLUTE NEUTROPHILS 6.9 thou/uL (1.6-8.1); BASOPHILS 0.8 %; EOSINOPHILS 0.8 %; HEMATOCRIT 34.6 % (37.0-47.0); HEMOGLOBIN 11.5 gm/dL (12.0-15.0); LYMPHOCYTES 34.7 %; MCH 33.4 pg (26.0-34.0); MCHC 33.1 g/dL (28.0-37.0); MCV 100.8 fL (80.0-100.0); MONOCYTES 10.5 %; MPV 9.6 fl. (7.2-11.1); NUCLEATED RBCS 0 /100WBC; PLATELET COUNT* 286 thou/uL (150-400); POLYS 53.2 %; RBC 3.44 mil/uL (4.20-5.00); RDW-CV 14.3 % (10.5-14.5); WBC 12.9 thou/uL (4.0-11.0)
[2017-11-01 18:08] LABS: CALCIUM 8.7 mg/dL (8.5-10.1); CREATININE 1.1 mg/dL (0.6-1.3); POTASSIUM 3.4 mmol/L (3.5-5.1)
[2017-11-01 18:12] LABS: ALBUMIN 2.8 g/dL (3.4-5.0); TOTAL PROTEIN 7.3 g/dL (6.4-8.2); URIC ACID* 6.2 mg/dL (2.6-7.2)
[2017-11-01] MEDS ORDERED: PREDNISONE 20 M20 M1 PO (18:14)
[2017-11-01] MEDS ORDERED: PERCOCET 5-3251 EACH PO (18:14)
[2017-11-01 18:35] VITALS: BP 113/71
== END 2017-11-01 18:35 | disposition home or self-care (01) ==
LOC: M.ERS 17:23
PROVIDERS: Family Medicine
DX: M10.9 Gout, unspecified (principal); M81.0 Age-related osteoporosis without current pathological fracture; N18.3 Chronic kidney disease, stage 3 (moderate); Z87.440 Personal history of urinary (tract) infections; Z86.2 Personal history of diseases of the blood and blood-forming organs and certain disorders involving the immune mechanism

== ENCOUNTER → 2017-11-01 | Outpatient (CLI) | payer OTHER, SELFPAY ==
[~2017-11-01] MED LIST changes: +BACTRIM DS TAB1 EACH PO; +BENTYL 10 MG CA10 M1 PO; +FLORASTOR250 MG PO; +FOSAMAX 70 MG T70 MG PO; +NEURONTIN 300M300 M2 PO; +PERCOCET 5-3251 EACH PO; +PREDNISONE 20 M20 M1 PO
== END ==
LOC: M.ULTRA 12:20
DX: M79.89 Other specified soft tissue disorders (principal); M25.531 Pain in right wrist

== ENCOUNTER → 2017-11-29 | Outpatient (CLI) | payer OTHER, SELFPAY ==
[~2017-11-29] MED LIST changes: +FOSAMAX 70 MG T70 MG PO; +NEURONTIN 300M300 M2 PO; +PERCOCET 5-3251 EACH PO; +PREDNISONE 20 M20 M1 PO
== END ==
LOC: M.LAB 11-10 10:30 → M.CT 11-10 11:30 → M.LAB 11-15 10:00
PROVIDERS: Nurse Practitioner Family
DX: E04.2 Nontoxic multinodular goiter (principal); J92.9 Pleural plaque without asbestos; M25.531 Pain in right wrist; Z85.3 Personal history of malignant neoplasm of breast; Z85.43 Personal history of malignant neoplasm of ovary

== ENCOUNTER → 2018-03-28 | Outpatient (CLI) | payer OTHER, SELFPAY | LOC: M.RAD 09:41 → M.CT 11:30 | DX: M81.8 Other osteoporosis without current pathological fracture (principal); R91.8 Other nonspecific abnormal finding of lung field; R91.1 Solitary pulmonary nodule; Z78.0 Asymptomatic menopausal state ==

== ENCOUNTER → 2018-12-07 | Outpatient (CLI) | payer OTHER | LOC: M.ULTRA 10:24 | DX: E04.2 Nontoxic multinodular goiter (principal) ==

== ENCOUNTER 2019-06-05 00:28 | Emergency (ER) | payer OTHER, SELFPAY ==
[~2019-06-05] VITALS: Ht 152.4 cm; Wt 59.0 kg
[2019-06-05 01:02] LABS: ABSOLUTE BASOPHILS 0.3 thou/uL (0.0-0.2); ABSOLUTE LYMPHOCYTES 6.1 thou/uL (0.8-5.3); ABSOLUTE MONOCYTES 0.8 thou/uL (0.0-1.2); ABSOLUTE NEUTROPHILS 9.2 thou/uL (1.6-8.1); BASOPHILS 1.5 %; HEMATOCRIT 39.7 % (37.0-47.0); HEMOGLOBIN 13.2 gm/dL (12.0-15.0); LYMPHOCYTES 34.9 %; MCH 34.5 pg (26.0-34.0); MCHC 33.2 g/dL (28.0-37.0); MCV 104.1 fL (80.0-100.0); MONOCYTES 4.6 %; NUCLEATED RBCS 0 /100WBC; PLATELET COUNT* 263 thou/uL (150-400); RBC 3.81 mil/uL (4.20-5.00); RDW-CV 14.7 % (10.5-14.5); WBC 17.4 thou/uL (4.0-11.0)
[2019-06-05 01:11] LABS: CALCIUM 8.9 mg/dL (8.5-10.1); CREATININE 1.2 mg/dL (0.6-1.3); POTASSIUM 4.2 mmol/L (3.5-5.1)
[2019-06-05 01:12] LABS: PROTIME 10.1 Seconds (9.20-11.50)
[2019-06-05 01:16] LABS: ALBUMIN 3.2 g/dL (3.4-5.0); TOTAL BILIRUBIN 0.2 mg/dL (<0.1-1.0)
[2019-06-05 02:58] LABS: URINE BILIRUBIN NEGATIVE (Negative); URINE BLOOD TRACE (Negative); URINE CLARITY CLEAR; URINE COLOR YELLOW; URINE GLUCOSE-RANDOM NEGATIVE (Negative); URINE KETONES NEGATIVE (Negative); URINE NITRITE-REFLEX NEGATIVE (Negative); URINE PROTEIN NEGATIVE (Negative); URINE SPECIFIC GRAVITY <= 1.005 (1.005-1.030); URINE UROBILINOGEN 0.2 E.U./dl (0.2-1.0)
[2019-06-05 03:01] LABS: URINE LEUKOCYTES-REFLEX 2+ (Negative)
[2019-06-05 03:03] LABS: MUCUS None Seen strn/LPF (None Seen); SQUAMOUS >10 Many /LPF (0-3)
[2019-06-05 03:04] LABS: CASTS None Seen /LPF (None Seen); CRYSTALS None Seen /LPF (None Seen); URINE RBC 0-2 Rare /HPF (0-2); URINE WBC-REFLEX >25 Many /HPF (0-5)
[2019-06-05 03:05] LABS: WBC CLUMPS Few (None Seen)
[2019-06-05 03:06] LABS: AMP/METHAMP Negative (Negative); BARBITURATES Negative (Negative); BENZODIAZEPINES Negative (Negative); COCAINE Negative (Negative); METHADONE Negative (Negative); OPIATES Negative (Negative); PCP Negative (Negative); THC Negative (Negative)
[2019-06-05] MEDS ORDERED: HYDROCODON-ACE1 EAC8 PO (04:24)
[2019-06-05 05:36] VITALS: BP 144/49
== END 2019-06-05 05:38 | disposition home or self-care (01) ==
LOC: M.ERS 00:28
PROVIDERS: Emergency Medicine
DX: S42.032A Displaced fracture of lateral end of left clavicle, initial encounter for closed fracture (principal); N18.3 Chronic kidney disease, stage 3 (moderate); M81.0 Age-related osteoporosis without current pathological fracture; Z86.2 Personal history of diseases of the blood and blood-forming organs and certain disorders involving the immune mechanism; Z90.81 Acquired absence of spleen; W05.0XXA Fall from non-moving wheelchair, initial encounter; Y92.89 Other specified places as the place of occurrence of the external cause; Y93.89 Activity, other specified; Y99.8 Other external cause status

== ENCOUNTER → 2019-06-12 | Outpatient (CLI) | payer OTHER, SELFPAY ==
[~2019-06-12] MED LIST changes: +ALLOPURINOL 10100 M3 PO; +HYDROCODON-ACE1 EAC8 PO; +LIPITOR10 MG PO
== END ==
LOC: M.LAB 09:30 → M.CT 11:00 → M.LAB 11:17
PROVIDERS: Urology
DX: M47.815 Spondylosis without myelopathy or radiculopathy, thoracolumbar region (principal); N30.80 Other cystitis without hematuria; I70.0 Atherosclerosis of aorta; N39.0 Urinary tract infection, site not specified

== ENCOUNTER 2019-06-20 11:12 | Inpatient (IN) | payer OTHER, SELFPAY ==
[~2019-06-20] VITALS: Ht 152.4 cm; Wt 51.9 kg
[~2019-06-20 11:12] MED LIST changes: -ALLOPURINOL 10100 M3 PO; -LIPITOR10 MG PO
[2019-06-20 11:30] VITALS: BP 127/54
[2019-06-20] MEDS ORDERED: ALLOPURINOL 10100 M3 PO (12:22)
[2019-06-20] MEDS ORDERED: LIPITOR10 MG PO (12:22)
[2019-06-20 12:24] LABS: ABSOLUTE BASOPHILS 0.1 thou/uL (0.0-0.2); ABSOLUTE LYMPHOCYTES 3.9 thou/uL (0.8-5.3); ABSOLUTE MONOCYTES 0.7 thou/uL (0.0-1.2); ABSOLUTE NEUTROPHILS 5.5 thou/uL (1.6-8.1); BASOPHILS 1.4 %; EOSINOPHILS 0.4 %; HEMOGLOBIN 13.2 gm/dL (12.0-15.0); LYMPHOCYTES 37.7 %; MCH 34.7 pg (26.0-34.0); MCHC 33.9 g/dL (28.0-37.0); MCV 102.5 fL (80.0-100.0); MONOCYTES 6.7 %; MPV 9.7 fl. (7.2-11.1); NUCLEATED RBCS 0 /100WBC; PLATELET COUNT* 310 thou/uL (150-400); POLYS 53.8 %; WBC 10.2 thou/uL (4.0-11.0)
[2019-06-20 12:42] LABS: CALCIUM 8.3 mg/dL (8.5-10.1); CREATININE 1.2 mg/dL (0.6-1.3); POTASSIUM 2.8 mmol/L (3.5-5.1)
[2019-06-20 12:46] LABS: ALBUMIN 3.3 g/dL (3.4-5.0); TOTAL BILIRUBIN 0.5 mg/dL (<0.1-1.0); TOTAL PROTEIN 7.3 g/dL (6.4-8.2)
--- NOTE | 2019-06-20 15:49 | EKG ---
[place] [address] ELECTROCARDIOGRAM REPORT Name: KATELINSDVALENCIA BUTLER Room: [place] [address] ADM IN .R.#: [id number] Admission: 06/20/19 Attend Phys: Armaan Orozco MD Discharge: Date of : 41 Report #: [id number] THIS REPORT FOR: //name// [facility] ED Test Date: 2019-06-20 Test Time: 11:40:47 Pat Name: SD THOMASON Department: Room: [facility] Gender: F Deoiling Machine Operator: : 1945 Requested By: Brando Herrera Order Number: [id number] MD: Jaylon Colon Measurements Intervals [place] Rate: 96 P: MT: QRS: 8 QRSD: 97 T: 101 QT: 464 QTc: 587 Interpretive Statements Atrial fibrillation Borderline repolarization abnormality Diffuse nonspecific ST-T abnormalities Prolonged QT interval Compared to ECG 08/26/2017 08:15:58 Prolonged QT interval now present Sinus rhythm no longer present Electronically Signed On 06-20-2019 15:48:48 TIMBER MANAGEMENT ASSISTANT by Jaylon Colon [email or web address] <ELECTRONICALLY SIGNED> By: Jaylon Colon MD, FAC 06/20/19 1548 1140 1140 Jaylon Colon MD, [facility] /EPI
[2019-06-20 16:41] VITALS: BP 127/54
--- NOTE | 2019-06-20 16:48 | NUR ---
[address] MENG POTASSIUM 2.8. AT THIS TIME DR MENG IS CONSULTING WITH DR PEREZ WHO WILL PUT IN ORDERS FOR POTASSIUM.
[2019-06-20 17:15] VITALS: BP 100/46
[2019-06-20 17:20] LABS: URINE BLOOD TRACE (Negative); URINE CLARITY TURBID; URINE COLOR YELLOW; URINE GLUCOSE-RANDOM NEGATIVE (Negative); URINE KETONES 2+ (Negative); URINE LEUKOCYTES-REFLEX TRACE (Negative); URINE NITRITE-REFLEX NEGATIVE (Negative); URINE PROTEIN NEGATIVE (Negative); URINE UROBILINOGEN 0.2 E.U./dl (0.2-1.0)
[2019-06-20 17:31] LABS: ICTOTEST (BILI CONFIRMATORY) Negative (Negative); URINE BILIRUBIN 1+ (Negative)
[2019-06-20 17:35] LABS: CASTS None Seen /LPF (None Seen); MUCUS None Seen strn/LPF (None Seen); SQUAMOUS >10 Many /LPF (0-3); URINE WBC-REFLEX >25 Many /HPF (0-5)
[2019-06-20 17:36] LABS: CRYSTALS None Seen /LPF (None Seen); URINE RBC 0-2 Rare /HPF (0-2)
--- NOTE | 2019-06-20 18:41 | NUR ---
PATIENT ARRIVED TO 215 PER CART FROM ER THIS EVENING. PATIENT'S K+LOW AT 2.8. PATIENT STATES THAT SHE IS TO WEAK TO WALK AND HAS BEEN HAVING ABOUT 20 STOOLS A DAY. PATIENT PLACED IN ISOLATION. PLACED ON THE TELE MONITOR. PATIENT ORIENTED TO ROOM AND PROCEDURES. PATIENT PLACED ON BEDPAN X 2 SINCE ARRIVING FROM THE ER. NO STOOLS AT THIS TIME BUT URINE SPECIMEN SENT TO LAB. PATIENT'S BUTTOCKS EXCORIATED ON ARRIVAL. HER LE LEGS SWOLLEN BILATERALLY. SHE C/O PAIN TO TOUCH HER LEGS AND STATED SHE IS HAVING ABD PAIN THAT SHE RATES AT AN 8 ON THE PAIN SCALE. IV ANTIBIOTICS STARTED. PATIENT GIVEN TYLENOL FOR PAIN BUT SHE SAID THAT IT WAS NO EFFECTIVE.
[2019-06-20 19:01] VITALS: BP 100/46
[2019-06-20 20:20] VITALS: BP 139/46
[2019-06-21] VITALS: BP 114/57
[2019-06-21 04:00] VITALS: BP 101/44
[2019-06-21 04:35] LABS: ABSOLUTE BASOPHILS 0.1 thou/uL (0.0-0.2); ABSOLUTE EOSINOPHILS 0.2 thou/uL (0.0-0.7); ABSOLUTE MONOCYTES 0.6 thou/uL (0.0-1.2); ABSOLUTE NEUTROPHILS 4.8 thou/uL (1.6-8.1); BASOPHILS 1.1 %; EOSINOPHILS 2.7 %; HEMOGLOBIN 12.2 gm/dL (12.0-15.0); LYMPHOCYTES 34.4 %; MCV 102.8 fL (80.0-100.0); MONOCYTES 6.6 %; MPV 9.3 fl. (7.2-11.1); NUCLEATED RBCS 0 /100WBC; PLATELET COUNT* 291 thou/uL (150-400); POLYS 55.2 %; RDW-CV 15.3 % (10.5-14.5); WBC 8.8 thou/uL (4.0-11.0)
[2019-06-21 04:47] LABS: CALCIUM 8.1 mg/dL (8.5-10.1)
[2019-06-21 04:48] LABS: POTASSIUM 4.9 mmol/L (3.5-5.1)
[2019-06-21 07:40] VITALS: BP 124/58
--- NOTE | 2019-06-21 07:46 | NUR ---
PT CARE ASSUMED AT 1930. ALERT AND ORIENTED X4. PT IS DROWSY. CALL LIGHT WITHIN REACH AND BED IN LOW POSITION. PT'S BOTTOM IS RED BUT BLANCHABLE, BARRIER CREAM APPLIED. HOURLY ROUNDING DONE FOR PT SAFETY.
--- NOTE | 2019-06-21 11:26 | NUR ---
ASSUMED PT CARE AT 0800, AOX3, BEDREST, O2 SAT 90'S RA. TRACING SINUS TACH ON TELE. PT COMPLAINS OF GENERALIZED PAIN. MEDS GIVEN. PT HX OF FALL/FX, PT L ARM SLING MAINTAINED. PT ON FALL PRECAUTION. PT ON ISOLATION TO SCREEN FOR CDIFF. VSS, AM ASSESSMENT CHARTED, HOURLY ROUNDING, CALL LIGHT WITHIN REACH, WILL CONTINUE TO MONITOR.
[2019-06-21 11:52] VITALS: BP 115/42
--- NOTE | 2019-06-21 11:53 | NUR ---
Pt is A&O, but tired. Resides at home with . WC bound. Hx of HH with [facility] and [facility]. Hx of skilled at [facility]. Discussed dispo, Pt requested that CM speak with her granddtr, Rupal, regardig POC. CM to reach out to Rupal. Following.
--- NOTE | 2019-06-21 12:58 | NUR ---
WOUND NURSE: PATIENT SEEN D/T RED, MACULAR RASH ON BUTTOCKS. NO OPEN WOUNDS NOTED BY THIS NURSE. PATIENT WAS CLEANSED WITH SANITARY WIPES, THEN CLEAR AID MOISTURE BARRIER APPLIED AND PATIENT REPOSITIONED ONTO HER LEFT SIDE. PATIENT WAS INCONTINENT OF B&B, AND RECEIVED PERNEAL CARE A RESULT ALSO.
[2019-06-21 16:00] VITALS: BP 108/41
[2019-06-21 20:44] VITALS: BP 114/45
[2019-06-22] VITALS: BP 108/46
[2019-06-22 04:00] VITALS: BP 108/46
[2019-06-22 04:58] LABS: ABSOLUTE BASOPHILS 0.1 thou/uL (0.0-0.2); ABSOLUTE EOSINOPHILS 0.3 thou/uL (0.0-0.7); ABSOLUTE MONOCYTES 0.6 thou/uL (0.0-1.2); ABSOLUTE NEUTROPHILS 3.2 thou/uL (1.6-8.1); BASOPHILS 0.8 %; EOSINOPHILS 4.6 %; HEMATOCRIT 35.8 % (37.0-47.0); HEMOGLOBIN 11.9 gm/dL (12.0-15.0); LYMPHOCYTES 41.9 %; MCH 34.5 pg (26.0-34.0); MCHC 33.3 g/dL (28.0-37.0); MCV 103.6 fL (80.0-100.0); MONOCYTES 8.6 %; MPV 9.4 fl. (7.2-11.1); NUCLEATED RBCS 0 /100WBC; PLATELET COUNT* 259 thou/uL (150-400); POLYS 44.1 %; RBC 3.46 mil/uL (4.20-5.00); RDW-CV 15.5 % (10.5-14.5); WBC 7.3 thou/uL (4.0-11.0)
[2019-06-22 05:24] LABS: ALBUMIN 2.8 g/dL (3.4-5.0); POTASSIUM 4.1 mmol/L (3.5-5.1); TOTAL BILIRUBIN 0.3 mg/dL (<0.1-1.0); TOTAL PROTEIN 6.4 g/dL (6.4-8.2)
--- NOTE | 2019-06-22 07:31 | NUR ---
PT IS ABLE TO COMMUNICATE HER NEEDS TO STAFF WITH MINOR DIFFICULTY; SHE IS [id number] AND FORGETFUL AT TIMES. CURRENT PAIN MEDICATION REGIMEN HAS BEEN ADEQUATE FOR CONTROLLING HER PAIN UP TO THIS TIME. SPECIAL ISOLATION FOR POSSIBLE C.DIFF INFECTION MAINTAINED. CODE STATUS IS DNR.
[2019-06-22 08:00] VITALS: BP 126/47
--- NOTE | 2019-06-22 10:49 | NUR ---
Spoke with Pt's granddtr, monty in agreement with Pt going skilled at dc. Faxed referral to [facility] for possible weekend dc. CM requested [facility] to initiate auth if they are able to accept. Post SNF, monty's plan is for Pt to move into her home, so that she can have 24hr support, Pt's dtr and great granddtr also live in the home and are available to assist. Following.
[2019-06-22 11:35] VITALS: BP 112/39
--- NOTE | 2019-06-22 15:13 | NUR ---
[facility] can accept Pt for skilled. If Pt is ready to dc this weekend, contact Amaris at [phone], [phone].
--- NOTE | 2019-06-22 15:31 | NUR ---
ASSUMED PT CARE AT 0800, AOX4, UP WITH ASSIST. O2 SAT 90'S RA. TRACING SR 1ST DEGREE ON TELE. PT COMPLAINS OF GENERALIZED PAIN. PT BOTTOM RED, INCONTINENT OF URINE, Q2 TURN. LAST BM 06/20/19. NO LOOSE STOOL. PT POOR APPETITE. AM ASSESSMENT CHARTED, MEDS GIVEN PER MAR, CALL LIGHT WITHIN REACH, WILL CONTINUE TO MONITOR.
[2019-06-22 17:11] VITALS: BP 125/54
[2019-06-22 20:44] VITALS: BP 111/45
[2019-06-23] VITALS: BP 111/37
[2019-06-23 04:00] VITALS: BP 109/51
--- NOTE | 2019-06-23 07:43 | NUR ---
PT IS ABLE TO COMMUNICATE HER NEEDS TO STAFF EFFEFTIVELY. CURRENT PAIN MEDICATION REGIMEN HAS BEEN ADEQUATE FOR CONTROLLING HER PAIN UP TO THIS TIME. LEFT ARM SLING MAINTAINED. CODE STATUS IS DNR. POSSIBLE DISCHARGE TO A SKILLED FACILITY SOON.
[2019-06-23 08:00] VITALS: BP 119/55
[2019-06-23 12:52] VITALS: BP 109/55
[2019-06-23 16:00] VITALS: BP 117/42
--- NOTE | 2019-06-23 18:58 | NUR ---
RECEIVED REPORT. ASSUMED PT CARE AROUND 729. P A&O X4. VSS. HARD OF HEARING. TRANSPORTATION CLERK IN PLACE TRACING SR TO SR WITH 1ST DEGREE AV BLOCK AT TIMES. AM ASSESSMENT AND VITALS COMPLETED CHARTED. IV INTACT. MEDS PER EMAR. PT ON BEDPAN TO URINATE MULTIPLE TIMES THIS SHIFT. BARRIER CREAM APPLIED OFTEN AND PT TURNED Q2HRS. FAMILY AT BEDSIDE THIS MORNING. PT REPORTED PAIN IN LEFT SHOULDER THIS AFTERNOON AND RECEIVED PO PAIN MEDICATION WITH RELIEF. PT TOLERATIND DIET. NO BM THIS SHIFT. PLAN IS FOR PT TO DC TO SNF TUESDAY. FAMILY DOES NOT WANT PT TO DISCHARGE TO [facility]. PT CURRENTLY WATCHING TV IN BED. CALL LIGHT IS WITHIN REACH. HOURLY ROUNDING PERFORMED. FALL PRECAUTIONS IN PLACE.
[2019-06-23 20:19] VITALS: BP 106/41
[2019-06-24] VITALS: BP 117/47
[2019-06-24 04:00] VITALS: BP 106/51
--- NOTE | 2019-06-24 05:07 | NUR ---
PT IS ABLE TO COMMUNICATE HER NEEDS TO STAFF WITH MINOR DIFFICULTY; SHE IS [id number] AND FORGETFUL AT TIMES. CURRENT PAIN MEDICATION REGIMEN HAS BEEN ADEQUATE FOR CONTROLLING HER PAIN UP TO THIS TIME. POSSIBLE DISCHARGE TO A SKILLED FACILITY ON TUESDAY.
[2019-06-24 08:00] VITALS: BP 122/40
[2019-06-24 14:05] VITALS: BP 122/54
[2019-06-24 16:43] VITALS: BP 108/41
--- NOTE | 2019-06-24 18:37 | NUR ---
assumed pt care report received from nurse pt is aox4 forgetful on ra. sr 1st av block on cardiac tech. denies pain until 1030 am. physical therapy worked with pt and got her out of bed. pt has been having a bad attitude with staff. no further complaint. call light at reach. fall precaution in place at all time
[2019-06-24 20:00] VITALS: BP 114/46
[2019-06-25 00:02] VITALS: BP 112/38
[2019-06-25 03:40] VITALS: BP 133/50
--- NOTE | 2019-06-25 05:39 | NUR ---
PATIENT PROGRESSING TOWARDS GOALS: PAIN IN LEFT CLAVICLE AND RIBS RELIEVED WITH PO MEDICATION PER MAR, IMMOBILIZATION WITH SLING, AND RELAXATION TECHNIQUES. PATIENT HAS RESTED WITH EYES CLOSED A MAJORITY OF THE SHIFT. PATIENT PLEASANT WITH STAFF THIS SHIFT. CALL LIGHT WITHIN REACH.
[2019-06-25 08:00] VITALS: BP 119/70
[2019-06-25 13:03] VITALS: BP 119/70
[2019-06-25] MEDS ORDERED: AUGMENTIN 875-1 EACH PO (13:08)
[2019-06-25] MEDS ORDERED: NORCO 5-325 TA1 EAC1 PO (13:12)
--- NOTE | 2019-06-25 15:18 | NUR ---
DISCHARGE EDUCATION GIVEN TO THE PT AND REPORT GIVEN TO ANTHONY HSU AT [facility]. PT LEFT THE UNIT AT 1445 WITH THE TRANSPORTER. ALL HER BELONGINGS PACKED IN A BAG AND SENT WITH HER.
== END 2019-06-25 14:30 | DRG 542 ==
LOC: M.ERS 11:12 → M.2W 14:45 → M.TBA-ER 14:45 → M.2W 16:29
PROVIDERS: Family Medicine; ADMIT Internal Medicine
DX: M80.012A Age-related osteoporosis with current pathological fracture, left shoulder, initial encounter for fracture (principal); G92 Toxic encephalopathy; R65.10 Systemic inflammatory response syndrome (SIRS) of non-infectious origin without acute organ dysfunction; J98.11 Atelectasis; S42.002A Fracture of unspecified part of left clavicle, initial encounter for closed fracture; N30.90 Cystitis, unspecified without hematuria; E87.6 Hypokalemia; N18.3 Chronic kidney disease, stage 3 (moderate); G40.909 Epilepsy, unspecified, not intractable, without status epilepticus; W18.30XA Fall on same level, unspecified, initial encounter; Y93.89 Activity, other specified; Y92.89 Other specified places as the place of occurrence of the external cause; Y99.8 Other external cause status; Z23 Encounter for immunization; Z90.81 Acquired absence of spleen

== ENCOUNTER → 2019-08-15 | Outpatient (CLI) | payer OTHER, SELFPAY ==
[~2019-08-15] MED LIST changes: +ALLOPURINOL 10100 M3 PO; +AUGMENTIN 875-1 EACH PO; +LIPITOR10 MG PO; +NORCO 5-325 TA1 EAC1 PO
== END ==
LOC: M.RAD 09:58
DX: M81.0 Age-related osteoporosis without current pathological fracture (principal)

== ENCOUNTER → 2019-10-10 | Day surgery (SDC) | payer OTHER, SELFPAY ==
[~2019-10-10] MED LIST changes: +CEPHALEXIN 250250 M1 PO; +PROBIOTIC1 EAC7 PO; +VITAMIN D325 MC3 PO
--- NOTE | ~2019-10-10 | PROC ---
[address] [address] PROCEDURE REPORT Name: SD THOMASON Room: [facility] M.R.#: [id number] Admission: 10/10/19 Attend Phys: Glenn Vick MD Discharge: Date of : 41 Report #: [id number] THIS REPORT FOR: //name// cc: Jaylon Mari John E. DO ~ THIS REPORT FOR: //name// For GI report, please see the Provation report in Perceptive 7 content. By: [id number] Records Staff LAKEISHA /KIMBERLEY
[2019-10-10 09:23] LABS: HEMATOCRIT 40.3 % (37.0-47.0); HEMOGLOBIN 13.6 gm/dL (12.0-15.0); MCH 34.5 pg (26.0-34.0); MCHC 33.7 g/dL (28.0-37.0); MCV 102.6 fL (80.0-100.0); MPV 9.2 fl. (7.2-11.1); RBC 3.93 mil/uL (4.20-5.00); RDW-CV 14.8 % (10.5-14.5); WBC 8.3 thou/uL (4.0-11.0)
[2019-10-10 09:27] LABS: CREATININE 1.1 mg/dL (0.6-1.3); POTASSIUM 3.3 mmol/L (3.5-5.1)
--- NOTE | 2019-10-11 15:08 | PATH ---
[facility] [address] [place] [address] PATHOLOGY RPT PROCEDURE Name: JENNIFER MATTA Room: [facility]..#: [id number] Admission: 10/10/19 Date of : 41 Discharge: Report #: [id number] Path Case #: [id number] [facility] Accession Number: [id number] . 01 Material submitted: . PART A: colon - ASCENDING COLON POLYP X5. Modifiers: ascending PART B: colon - TRANSVERSE COLON POLYPS X12. Modifiers: transverse PART C: colon - DESCENDING COLON POLYPS X49. Modifiers: descending . 01 Clinical history: . Dysphagia, GERD, weight loss, history of colon polyps, history of Breast CA . 02 Diagnosis: A. Ascending colon polyps x 5: - Multiple tubular adenomas, negative for high grade dysplasia. . B. Transverse colon polyps x 12: - Multiple tubular adenomas, negative for high grade dysplasia. . C. Descending colon polyps x 49: - Multiple tubular adenomas, negative for high grade dysplasia. (KIEL/db; 10/11/2019) LBQ 10/11/2019 1157 Local . 02 Electronically signed: . Baltazar Robert MD, Pathologist NPI- [id number] . 01 Gross description: . A. The specimen is received in formalin, labeled "Jennifer Matta", "ascending colon polyps x5". Received are multiple small segments of pale jason soft tissue, ranging in size from 0.1 cm to 0.3 cm. The specimen is filtered and entirely submitted in cassette A1. . B. The specimen is received in formalin, labeled "MattaRoseanncy", "transverse colon polyps x 12". Received are multiple segments of pale jason soft tissue, ranging in size from 0.1 cm to 0.3 cm. The specimen is filtered and entirely submitted in cassettes B1 and B2. . C. The specimen is received in formalin, labeled "Jennifer Matta", "descending colon polyps x49". Received are multiple segments of pale jason soft tissue, ranging in size from 0.1 cm to 0.4 cm. The specimen is entirely submitted in cassettes C1-C5.(SNA; 10/10/2019) FERNY/AV 10/10/2019 1907 Local . 02 Pathologist provided ICD-10: D12.2, D12.3, D12.4 [place] [address] PATHOLOGY RPT PROCEDURE Name: JENNIFER MATTA Room: [facility].#: [id number] Admission: 10/10/19 Date of : 41 Discharge: Report #: [id number] Path Case #: [id number] . 02 CPT . [id number], [id number], [id number] Specimen Comment: A courtesy copy of this report has been sent to [phone], [phone] Specimen Comment: [phone] Specimen Comment: Report sent to / DR FRANKEL Performed at: 01 [facility] [address], [place], [place] [id number] MD Anthony Cole MD Phone: [phone] Performed at: [address] [facility] [address] [place] [id number] MD Baltazar Robert MD Phone: [phone]
== END | disposition home or self-care (01) ==
LOC: M.SUR 08:22
PROVIDERS: Internal Medicine Gastroenterology
DX: R63.4 Abnormal weight loss (principal); R13.10 Dysphagia, unspecified; D12.3 Benign neoplasm of transverse colon; D12.4 Benign neoplasm of descending colon; D12.2 Benign neoplasm of ascending colon; K64.8 Other hemorrhoids; K44.9 Diaphragmatic hernia without obstruction or gangrene; K21.9 Gastro-esophageal reflux disease without esophagitis; I48.91 Unspecified atrial fibrillation; I50.9 Heart failure, unspecified; N18.3 Chronic kidney disease, stage 3 (moderate); F32.9 Major depressive disorder, single episode, unspecified; F41.9 Anxiety disorder, unspecified; Z86.010 Personal history of colon polyps; Z98.890 Other specified postprocedural states; Z79.899 Other long term (current) drug therapy; Z87.891 Personal history of nicotine dependence; Z90.49 Acquired absence of other specified parts of digestive tract; Z90.710 Acquired absence of both cervix and uterus; Z85.3 Personal history of malignant neoplasm of breast; Z85.43 Personal history of malignant neoplasm of ovary; Z79.01 Long term (current) use of anticoagulants

== ENCOUNTER 2019-10-30 16:15 | Emergency (ER) | payer OTHER, SELFPAY ==
[~2019-10-30] VITALS: Ht 165.1 cm; Wt 54.4 kg
[2019-10-30 17:20] LABS: URINE BILIRUBIN NEGATIVE (Negative); URINE BLOOD 3+ (Negative); URINE CLARITY CLEAR; URINE COLOR YELLOW; URINE GLUCOSE-RANDOM NEGATIVE (Negative); URINE KETONES NEGATIVE (Negative); URINE PROTEIN NEGATIVE (Negative); URINE SPECIFIC GRAVITY 1.015 (1.005-1.030); URINE UROBILINOGEN 0.2 E.U./dl (0.2-1.0)
[2019-10-30 17:21] LABS: URINE LEUKOCYTES-REFLEX 3+ (Negative); URINE NITRITE-REFLEX POSITIVE (Negative)
[2019-10-30 17:27] LABS: CRYSTALS None Seen /LPF (None Seen); HYALINE CASTS 0-3 Few /LPF (None Seen); SQUAMOUS 4-10 Moderate /LPF (0-3); URINE RBC 3-10 Few /HPF (0-2); URINE WBC-REFLEX 6-15 Few /HPF (0-5)
[2019-10-30 17:39] LABS: ABSOLUTE BASOPHILS 0.1 thou/uL (0.0-0.2); ABSOLUTE EOSINOPHILS 0.1 thou/uL (0.0-0.7); ABSOLUTE MONOCYTES 0.6 thou/uL (0.0-1.2); ABSOLUTE NEUTROPHILS 3.9 thou/uL (1.6-8.1); BASOPHILS 0.7 %; EOSINOPHILS 0.9 %; HEMATOCRIT 37.8 % (37.0-47.0); HEMOGLOBIN 12.7 gm/dL (12.0-15.0); LYMPHOCYTES 52.1 %; MCH 34.1 pg (26.0-34.0); MCHC 33.6 g/dL (28.0-37.0); MCV 101.7 fL (80.0-100.0); MONOCYTES 5.8 %; MPV 9.3 fl. (7.2-11.1); NUCLEATED RBCS 0 /100WBC; PLATELET COUNT* 260 thou/uL (150-400); POLYS 40.5 %; RBC 3.72 mil/uL (4.20-5.00); RDW-CV 14.6 % (10.5-14.5); WBC 9.6 thou/uL (4.0-11.0)
[2019-10-30 17:51] LABS: ALBUMIN 3.3 g/dL (3.4-5.0); CALCIUM 8.8 mg/dL (8.5-10.1); CREATININE 1.2 mg/dL (0.6-1.3); MAGNESIUM 1.9 mg/dL (1.8-2.4); POTASSIUM 3.1 mmol/L (3.5-5.1); TOTAL BILIRUBIN 0.7 mg/dL (<0.1-1.0); TOTAL PROTEIN 6.8 g/dL (6.4-8.2)
[2019-10-30] MEDS ORDERED: AUGMENTIN 875-1 EACH PO (18:27)
[2019-10-30] MEDS ORDERED: ONDANSETRON HCL4 M2 PO (19:31)
[2019-10-30 20:13] VITALS: BP 138/69
--- NOTE | 2019-10-31 13:08 | EKG ---
[place] [address] ELECTROCARDIOGRAM REPORT Name: KATELINSD CARRIE Room: [facility]#: [id number] Admission: 10/30/19 Attend Phys: Discharge: 10/30/19 Date of : 41 Date of Service: 10/30/19 1642 Report #: [id number] THIS REPORT FOR: //name// [facility] ED Test Date: 2019-10-30 Test Time: 16:42:21 Pat Name: SD THOMASON Department: Room: Gender: F Spar Finisher: [facility] : 1945 Requested By: Rosa Winchester Order Number: [id number] MD: Jaylon Colon Measurements Intervals [place] Rate: 94 P: 143 MA: 251 QRS: 75 QRSD: 80 T: -88 QT: 407 QTc: 510 Interpretive Statements Sinus rhythm Atrial premature complex Prolonged MA interval Abnormal T, consider ischemia, diffuse leads Prolonged QT interval Baseline wander in lead(s) V1 Compared to ECG 06/20/2019 11:40:47 Atrial premature complex(es) now present First degree AV block now present T-wave abnormality now present Possible ischemia now present Atrial fibrillation no longer present Electronically Signed On 10-31-2019 13:07:00 CDT by Jaylon Colon [email or web address] <ELECTRONICALLY SIGNED> By: Jaylon Colon MD, [facility] 10/31/19 1307 41 164 Jaylon Colon MD, [facility] /EPI
== END 2019-10-30 20:13 | disposition home or self-care (01) ==
LOC: M.ERS 16:15
PROVIDERS: Nurse Practitioner Family
DX: R56.9 Unspecified convulsions (principal); E87.6 Hypokalemia; N39.0 Urinary tract infection, site not specified; N18.3 Chronic kidney disease, stage 3 (moderate); Z87.891 Personal history of nicotine dependence; Z86.2 Personal history of diseases of the blood and blood-forming organs and certain disorders involving the immune mechanism

== ENCOUNTER 2020-07-08 17:33 | Inpatient (IN) | payer OTHER ==
[~2020-07-08] VITALS: Ht 162.6 cm; Wt 51.3 kg
[~2020-07-08 17:33] MED LIST changes: +ONDANSETRON HCL4 M2 PO
[2020-07-08 17:35] VITALS: BP 113/59
[2020-07-08 18:02] LABS: ABSOLUTE BASOPHILS 0.2 thou/uL (0.0-0.2); ABSOLUTE EOSINOPHILS 0.2 thou/uL (0.0-0.7); ABSOLUTE MONOCYTES 0.9 thou/uL (0.0-1.2); ABSOLUTE NEUTROPHILS 6.4 thou/uL (1.6-8.1); BASOPHILS 1.5 %; EOSINOPHILS 1.9 %; HEMATOCRIT 40.8 % (37.0-47.0); HEMOGLOBIN 13.5 gm/dL (12.0-15.0); LYMPHOCYTES 39.5 %; MCH 34.2 pg (26.0-34.0); MCV 103.6 fL (80.0-100.0); MONOCYTES 6.9 %; MPV 9.5 fl. (7.2-11.1); NUCLEATED RBCS 0 /100WBC; PLATELET COUNT* 277 thou/uL (150-400); POLYS 50.2 %; RBC 3.94 mil/uL (4.20-5.00); RDW-CV 15.1 % (10.5-14.5); WBC 12.7 thou/uL (4.0-11.0)
[2020-07-08 18:09] LABS: CREATININE 1.2 mg/dL (0.6-1.3); POTASSIUM 3.3 mmol/L (3.5-5.1)
[2020-07-08 18:12] LABS: INR 0.9
[2020-07-08 18:13] LABS: ALBUMIN 3.6 g/dL (3.4-5.0); TOTAL BILIRUBIN 0.5 mg/dL (<0.1-1.0); TOTAL PROTEIN 7.9 g/dL (6.4-8.2)
[2020-07-08 18:27] LABS: URINE BILIRUBIN NEGATIVE (Negative); URINE BLOOD TRACE (Negative); URINE CLARITY CLEAR; URINE COLOR YELLOW; URINE GLUCOSE-RANDOM NEGATIVE (Negative); URINE KETONES NEGATIVE (Negative); URINE NITRITE-REFLEX NEGATIVE (Negative); URINE PROTEIN NEGATIVE (Negative); URINE UROBILINOGEN 0.2 E.U./dl (0.2-1.0)
[2020-07-08 18:28] LABS: URINE LEUKOCYTES-REFLEX 3+ (Negative)
[2020-07-08 18:41] LABS: SQUAMOUS >10 Many /LPF (0-3); URINE WBC-REFLEX >25 Many /HPF (0-5)
[2020-07-08 18:42] LABS: CRYSTALS None Seen /LPF (None Seen); HYALINE CASTS 4-10 Moderate /LPF (None Seen); MUCUS 0-3 Light strn/LPF (None Seen)
[2020-07-08 18:43] LABS: BACTERIA-REFLEX 1-9 Few /HPF (None Seen); URINE RBC 0-2 Rare /HPF (0-2); WBC CLUMPS Few (None Seen)
[2020-07-08] MEDS ORDERED: KEFLEX500 M1 PO (20:35)
[2020-07-08] MEDS ORDERED: NORCO 5-325 TA1 EAC2 PO ×2 (20:35→20:36)
[2020-07-08 22:46] VITALS: BP 99/40
[2020-07-08 23:00] VITALS: BP 120/62
[2020-07-09 07:55] VITALS: BP 108/35
[2020-07-09 09:42] LABS: CALCIUM 7.7 mg/dL (8.5-10.1); CREATININE 1.1 mg/dL (0.6-1.3); POTASSIUM 3.3 mmol/L (3.5-5.1)
[2020-07-09 09:45] LABS: MAGNESIUM 1.9 mg/dL (1.8-2.4)
--- NOTE | 2020-07-09 10:00 | EKG ---
[place] [address] ELECTROCARDIOGRAM REPORT Name: THOMASONSD BUTLER Room: [address] ADM IN M.R.#: [id number] Admission: 07/08/20 Attend Phys: Oliver Bray, Discharge: Date of : 41 Date of Service: 07/08/20 1744 Report #: [id number] THIS REPORT FOR: //name// [facility] ED Test Date: 2020-07-08 Test Time: 17:44:43 Pat Name: SD THOMASON Department: Room: [facility] Gender: F Patients Transporter: SHERRI : 1945 Requested By: Brando Herrera Order Number: [id number] MD: Alex Davis Measurements Intervals [place] Rate: 89 P: -47 AR: 209 QRS: 42 QRSD: 98 T: 83 QT: 433 QTc: 527 Interpretive Statements Sinus or ectopic atrial rhythm with pac's artifact noted Borderline repolarization abnormality Prolonged QT interval Compared to ECG 10/30/2019 16:42:21 no change Electronically Signed On 07-09-2020 10:00:27 CIPHER EXPERT by Alex Davis [email or web address] <ELECTRONICALLY SIGNED> By: Alex Davis MD, [facility] 07/09/20 1000 1744 1744 Alex Davis MD, [facility] /EPI
[2020-07-09 16:00] VITALS: BP 103/43
[2020-07-09 19:45] VITALS: BP 93/35
[2020-07-10 04:28] LABS: HEMATOCRIT 32.9 % (37.0-47.0); MCH 33.9 pg (26.0-34.0); MCHC 32.4 g/dL (28.0-37.0); MCV 104.9 fL (80.0-100.0); MPV 9.1 fl. (7.2-11.1); RBC 3.14 mil/uL (4.20-5.00); RDW-CV 15.1 % (10.5-14.5); WBC 7.6 thou/uL (4.0-11.0)
[2020-07-10 05:10] LABS: ALBUMIN 2.3 g/dL (3.4-5.0); CALCIUM 7.4 mg/dL (8.5-10.1); CREATININE 1.1 mg/dL (0.6-1.3); POTASSIUM 3.3 mmol/L (3.5-5.1); TOTAL BILIRUBIN 0.2 mg/dL (<0.1-1.0); TOTAL PROTEIN 5.6 g/dL (6.4-8.2)
[2020-07-10 05:27] LABS: HEMOGLOBIN 10.6 gm/dL (12.0-15.0)
[2020-07-10 07:45] VITALS: BP 95/31
[2020-07-10 16:00] VITALS: BP 109/55
[2020-07-10 19:40] VITALS: BP 89/32
[2020-07-11 00:30] VITALS: BP 99/36
[2020-07-11 04:28] LABS: CALCIUM 8.2 mg/dL (8.5-10.1); MAGNESIUM 1.9 mg/dL (1.8-2.4); POTASSIUM 3.4 mmol/L (3.5-5.1)
[2020-07-11 08:25] VITALS: BP 111/50
[2020-07-11 15:55] VITALS: BP 105/37
[2020-07-11 20:00] VITALS: BP 90/51
[2020-07-12 01:04] VITALS: BP 109/45
[2020-07-12 08:20] VITALS: BP 98/50
[2020-07-12 17:10] VITALS: BP 111/43
[2020-07-12 20:00] VITALS: BP 110/47
[2020-07-13 08:20] VITALS: BP 123/50
[2020-07-13] MEDS ORDERED: CELEBREX 200 M200 M1 PO (09:38)
[2020-07-13] MEDS ORDERED: CEFUROXIME250 MG PO (09:38)
[2020-07-13] MEDS ORDERED: PAIN RELIEVER500 MG PO (09:38)
[2020-07-13] MEDS ORDERED: MELATONIN5 M1 PO (09:38)
[2020-07-13] MEDS ORDERED: HYDROCODON-ACE1 EAC7 PO (09:39)
[2020-07-13 16:40] VITALS: BP 104/39
[2020-07-13 20:00] VITALS: BP 127/39
[2020-07-14 07:50] VITALS: BP 116/48
[2020-07-14 12:19] LABS: ABSOLUTE BASOPHILS 0.1 thou/uL (0.0-0.2); ABSOLUTE EOSINOPHILS 0.3 thou/uL (0.0-0.7); ABSOLUTE LYMPHOCYTES 3.4 thou/uL (0.8-5.3); ABSOLUTE MONOCYTES 0.3 thou/uL (0.0-1.2); ABSOLUTE NEUTROPHILS 2.4 thou/uL (1.6-8.1); BASOPHILS 1.2 %; EOSINOPHILS 4.6 %; HEMATOCRIT 34.8 % (37.0-47.0); HEMOGLOBIN 11.7 gm/dL (12.0-15.0); LYMPHOCYTES 52.5 %; MCH 34.7 pg (26.0-34.0); MCHC 33.5 g/dL (28.0-37.0); MCV 103.5 fL (80.0-100.0); MONOCYTES 5.2 %; MPV 8.6 fl. (7.2-11.1); NUCLEATED RBCS 0 /100WBC; PLATELET COUNT* 216 thou/uL (150-400); POLYS 36.5 %; RBC 3.36 mil/uL (4.20-5.00); RDW-CV 14.9 % (10.5-14.5); WBC 6.5 thou/uL (4.0-11.0)
[2020-07-14 12:27] LABS: CALCIUM 8.7 mg/dL (8.5-10.1); CREATININE 0.9 mg/dL (0.6-1.3)
[2020-07-14 12:32] LABS: ALBUMIN 2.7 g/dL (3.4-5.0); TOTAL BILIRUBIN 0.6 mg/dL (<0.1-1.0); TOTAL PROTEIN 6.3 g/dL (6.4-8.2)
[2020-07-14 17:09] VITALS: BP 112/46
[2020-07-14 20:55] VITALS: BP 100/33
[2020-07-15 09:00] VITALS: BP 116/52
== END 2020-07-15 13:20 | DRG 871 ==
LOC: M.ERS 17:33 → M.TBA-ER 21:51 → M.3W 21:51
PROVIDERS: Family Medicine; Internal Medicine; ADMIT Internal Medicine; ATTEND Internal Medicine
PROC: 2W3SX1Z Immobilization of Right Foot using Splint (ICD-10-PCS; principal; 2020-07-08)
DX: A41.9 Sepsis, unspecified organism (principal); E43 Unspecified severe protein-calorie malnutrition; R53.2 Functional quadriplegia; M80.0AXA Age-related osteoporosis with current pathological fracture, other site, initial encounter for fracture; N30.01 Acute cystitis with hematuria; Z68.1 Body mass index [BMI] 19.9 or less, adult; G40.909 Epilepsy, unspecified, not intractable, without status epilepticus; M10.9 Gout, unspecified; E87.6 Hypokalemia; D64.9 Anemia, unspecified; R65.20 Severe sepsis without septic shock; N18.30 Chronic kidney disease, stage 3 unspecified; S93.401A Sprain of unspecified ligament of right ankle, initial encounter; S16.1XXA Strain of muscle, fascia and tendon at neck level, initial encounter; S00.81XA Abrasion of other part of head, initial encounter; S00.93XA Contusion of unspecified part of head, initial encounter; W18.39XA Other fall on same level, initial encounter; E86.9 Volume depletion, unspecified; I95.2 Hypotension due to drugs; M47.816 Spondylosis without myelopathy or radiculopathy, lumbar region; Z66 Do not resuscitate; Z20.828 Contact with and (suspected) exposure to other viral communicable diseases; Y93.89 Activity, other specified; Y92.89 Other specified places as the place of occurrence of the external cause; Y99.8 Other external cause status; Z85.3 Personal history of malignant neoplasm of breast; Z90.11 Acquired absence of right breast and nipple; Z79.899 Other long term (current) drug therapy; Z87.891 Personal history of nicotine dependence; Z23 Encounter for immunization

== ENCOUNTER 2020-08-05 10:11 | Inpatient (IN) | payer OTHER ==
[~2020-08-05] VITALS: Ht 162.6 cm; Wt 53.3 kg
[~2020-08-05 10:11] MED LIST changes: +CELEBREX 200 M200 M1 PO; +HYDROCODON-ACE1 EAC7 PO; +KEFLEX500 M1 PO; +MELATONIN5 M1 PO; +NORCO 5-325 TA1 EAC2 PO; +PAIN RELIEVER500 MG PO
[2020-08-05 10:30] VITALS: BP 104/56
[2020-08-05 11:14] LABS: ABSOLUTE BASOPHILS 0.1 thou/uL (0.0-0.2); ABSOLUTE LYMPHOCYTES 2.7 thou/uL (0.8-5.3); ABSOLUTE MONOCYTES 0.4 thou/uL (0.0-1.2); ABSOLUTE NEUTROPHILS 5.3 thou/uL (1.6-8.1); BASOPHILS 1.2 %; EOSINOPHILS 0.6 %; HEMATOCRIT 40.5 % (37.0-47.0); HEMOGLOBIN 13.5 gm/dL (12.0-15.0); LYMPHOCYTES 31.4 %; MCH 34.5 pg (26.0-34.0); MCHC 33.4 g/dL (28.0-37.0); MCV 103.3 fL (80.0-100.0); MONOCYTES 4.9 %; MPV 9.8 fl. (7.2-11.1); NUCLEATED RBCS 0 /100WBC; PLATELET COUNT* 242 thou/uL (150-400); POLYS 61.9 %; RBC 3.93 mil/uL (4.20-5.00); RDW-CV 15.1 % (10.5-14.5); WBC 8.5 thou/uL (4.0-11.0)
[2020-08-05 11:19] LABS: CREATININE 1.2 mg/dL (0.6-1.3); POTASSIUM 3.4 mmol/L (3.5-5.1)
[2020-08-05 11:22] LABS: APTT 26.8 Seconds (25.0-31.3); PROTIME 10.5 Seconds (9.20-11.50)
--- NOTE | 2020-08-05 11:22 | NUR ---
IVS STARTED BY NOAH FROM INFUSION.
[2020-08-05 11:29] LABS: ALBUMIN 3.6 g/dL (3.4-5.0); TOTAL BILIRUBIN 0.5 mg/dL (<0.1-1.0)
[2020-08-05 16:30] VITALS: BP 114/51
--- NOTE | 2020-08-05 16:35 | EKG ---
[place] [address] ELECTROCARDIOGRAM REPORT Name: SD THOMASON Room: [place] [address] ADM IN ..#: [id number] Admission: 08/05/20 Attend Phys: Armaan Orozco, Discharge: Date of : 41 Date of Service: 08/05/20 [facility] Report #: [id number] THIS REPORT FOR: //name// [facility] ED Test Date: 2020-08-05 Test Time: 10:38:28 Pat Name: SD THOMASON Department: Room: [facility] Gender: F Finish Repairer: GARTH : 1945 Requested By: Brando Herrera Order Number: [id number] MD: Yan Cabral Measurements Intervals [place] Rate: 115 P: 75 PA: 134 QRS: 47 QRSD: 85 T: 83 QT: 361 QTc: 500 Interpretive Statements Sinus tachycardia Anteroseptal infarct, age indeterminate Prolonged QT interval Compared to ECG 07/08/2020 17:44:43 Myocardial infarct finding now present Ectopic atrial rhythm no longer present Electronically Signed On 08-05-2020 16:34:53 DRAWER WAXER by Yan Cabral [email or web address] <ELECTRONICALLY SIGNED> By: Yan Cabral MD, [facility] 08/05/20 1634 1038 1038 Yan aCbral MD, FAC /EPI
[2020-08-05 22:00] VITALS: BP 157/35
[2020-08-05 22:12] VITALS: BP 126/80
--- NOTE | 2020-08-06 04:42 | NUR ---
RECEIVED PT FROM ED PER CART ACCOMPANIED BY ED-RN. PT IS AWAKE AND ORIENTED X4, FORGETFUL. PT IS NOT IN DISTRESS, NO DESATURATIONS NOTED ON ROOM AIR. PT IS ORIENTED ON ROOM SET UP AND ON THE USE OF CALL LIGHT. PT C/O CHRONIC RIGHT ANKLE PAIN, PAIN MEDS GIVEN WITH PARTIAL RELIEF. HIGH FALL PRECAUTIONS IN PLACE. CALL LIGHT WITHIN REACH. HOURLY ROUNDING DONE FOR PT SAFETY.
[2020-08-06 07:30] LABS: ABSOLUTE LYMPHOCYTES 2.1 thou/uL (0.8-5.3); ABSOLUTE MONOCYTES 0.2 thou/uL (0.0-1.2); ABSOLUTE NEUTROPHILS 2.4 thou/uL (1.6-8.1); BASOPHILS 0.3 %; HEMATOCRIT 36.4 % (37.0-47.0); HEMOGLOBIN 11.8 gm/dL (12.0-15.0); LYMPHOCYTES 44.1 %; MCH 34.4 pg (26.0-34.0); MCHC 32.3 g/dL (28.0-37.0); MCV 106.2 fL (80.0-100.0); MONOCYTES 4.1 %; MPV 9.4 fl. (7.2-11.1); NUCLEATED RBCS 0 /100WBC; PLATELET COUNT* 199 thou/uL (150-400); POLYS 51.5 %; RBC 3.42 mil/uL (4.20-5.00); RDW-CV 15.7 % (10.5-14.5); WBC 4.7 thou/uL (4.0-11.0)
[2020-08-06 07:34] LABS: CALCIUM 8.1 mg/dL (8.5-10.1)
[2020-08-06 08:50] VITALS: BP 133/53
--- NOTE | 2020-08-06 15:00 | NUR ---
PT.KNOWN FROM PREVIOUS HOSPITALIZATION. SHE LIVES WITH HER . WAS HERE IN AND DISCHARGED TO [facility] FOR A SNF STAY. DISCHARGED AROUND [place] TO HOME. SHE HAS A WC,WALKER AND BATH BENCH. SHE NEEDS ASSIST WITH MOST THINGS. USUALLY ASSISTS HER BUT IS ALSO HOSPITALIZED FOR COVID 19. WILL MOST LIKELY NEED ANOTHER SNF STAY. CM WILL FOLLOW.
--- NOTE | 2020-08-06 16:42 | NUR ---
PT REMAINED ALERT AND ORIENTED. PT TEARFUL THIS MORNING AFTER SHE FELT BAD FOR GOING OFF ON TECH. PT APOLOGIZED AND CALMED DOWN SHORTLY AFTER. PT RESTING IN BED. FALL RISK PRECAUTIONS IN PLACE. HOURLY ROUNDING COMPLETED. FAMILY UPDATED.
[2020-08-06 17:22] VITALS: BP 107/41
[2020-08-06 21:04] VITALS: BP 128/52
[2020-08-07 00:16] VITALS: BP 125/46
[2020-08-07 05:50] LABS: ABSOLUTE BASOPHILS 0.1 thou/uL (0.0-0.2); ABSOLUTE LYMPHOCYTES 1.7 thou/uL (0.8-5.3); ABSOLUTE MONOCYTES 0.1 thou/uL (0.0-1.2); ABSOLUTE NEUTROPHILS 5.5 thou/uL (1.6-8.1); BASOPHILS 0.8 %; HEMATOCRIT 37.8 % (37.0-47.0); HEMOGLOBIN 12.4 gm/dL (12.0-15.0); LYMPHOCYTES 23.4 %; MCH 34.3 pg (26.0-34.0); MCHC 32.8 g/dL (28.0-37.0); MCV 104.6 fL (80.0-100.0); MONOCYTES 1.8 %; NUCLEATED RBCS 0 /100WBC; PLATELET COUNT* 215 thou/uL (150-400); RBC 3.61 mil/uL (4.20-5.00); RDW-CV 15.5 % (10.5-14.5); WBC 7.5 thou/uL (4.0-11.0)
[2020-08-07 06:10] LABS: CALCIUM 7.7 mg/dL (8.5-10.1); CREATININE 0.8 mg/dL (0.6-1.3); POTASSIUM 3.6 mmol/L (3.5-5.1)
--- NOTE | 2020-08-07 08:03 | NUR ---
PT IS ABLE TO COMMUNICATE HER NEEDS TO STAFF EFFECTIVELY. SHE HAS DENIED THE NEED FOR PAIN MEDICATION UP TO 0700 THIS MORNING. SHE IS NON TELE MONITORED AT THIS TIME. PT CAN BE WITHDRAWN AND SEEMS TO BE DEPRESSED.
[2020-08-07 08:45] VITALS: BP 137/49
[2020-08-07 16:00] VITALS: BP 121/46
[2020-08-07 20:00] VITALS: BP 141/63
--- NOTE | 2020-08-07 20:00 | NUR ---
PT WAS IN W/C VISITING WITH . NOW BACK IN ROOM. ASSISTED TO BSC AND RETURNED TO BED. PT CONFUSED, WHEN ASKED HER NAME, WAS UNABLE TO GIVE AND UNABLE TO GIVE . FALL PRECAUTIONS IN PLACE WITH BED ALARM ON. WILL CONT TO MONITOR AND ASSIST NEEDED.
--- NOTE | 2020-08-07 20:28 | NUR ---
I ASSUMED CARE OF THE PATIENT AT 0700. SHE IS GROGGY AND SEEMS LIKE SHES IN A HAZE AT THE BEGINNING OF THE SHIFT. HOME MEDS ARE RESTARTED AND SHE IS ALERT AND ORIENTED X4. BED IS IN THE LOW LOCKED POSITION AND CALL LIGHT IS IN REACH. PAIN IS MANAGED WITH PRN MEDS. HOURLY ROUNDING IS COMPLETED AND PATIENT NEEDS ARE MET. SHE WAS ABLE TO SPEND A FEW HOURS UP IN THE CHAIR IN HER HUSBANDS ROOM THIS EVENING. SHE HAD AN INCONT EPISODE THIS AFTERNOON OF URINE. PATIENT HAS A POOR APPETITE. WILL CONTINUE TO MONITOR.
[2020-08-08] VITALS: BP 134/50
--- NOTE | 2020-08-08 07:20 | NUR ---
Chet FREQ TONIGHT. INCONT OF URINE AND UP TO BSC APPROX Q 30 MIN. BUTTOCKS DISCOLORED BUT DOES NOT APPEAR FROM INCONT. RT ANKLE WRAPPED, TRANSFERS WITH 1 ASSIST DUE TO INBALANCE FROM PAINFUL ANKLE. PT CONT TO BE CONFUSED AND CURSING. HS GOALS OF REST AND SAFETY ACHIEVED. REMAINS IN ISOLATION.
[2020-08-08 08:15] VITALS: BP 101/56
--- NOTE | 2020-08-08 11:48 | NUR ---
SPOKE WITH PTS KRISTEN/ROBB WAED,ON PHONE. SHE SAID SHE FEELS COMFORTABLE BRINGING HER HOME WITH HOME HEALTH. SHE SAID THE SNFS NEVER SEEM TO HELP HER MUCH. SOMEONE CAN BE WITH HER 21/02. SHE NEEDS HELP OF ONE TO GET TO TOILET/BSC OR IN CHAIR. SHE WOULD LIKE HOME HEALTH. SHE WOULD LIKE WHO SHE HAD WHEN DISCHARGED FROM [facility] IN [place]. CM WILL CHECK WITH [facility] TO SEE WHO THEY HAD SET UP. HER MOM WILL PICK HER UP ABOUT 4:00 FROM HOSPITAL. NOTIFIED AND NSG. DISCUSSED SHE COULD STILL BE CONTAGIOUS FROM COVID. SHE SAID THEY HAVE MASKS AND GLOVES AND WILL SET AUNT UP IN A BEDROOM AND QUARANTINE THE BEST THEY CAN.
--- NOTE | 2020-08-08 14:45 | NUR ---
TUESDAY CM WILL FAX DISCHARGE ORDERS AND SUMMARY TO [facility]. THEY ARE NOT COMPLETED YET.
[2020-08-08 16:00] VITALS: BP 133/55
[2020-08-08 17:45] VITALS: BP 133/55
[2020-08-08 17:48] VITALS: BP 133/55
[2020-08-08 19:06] VITALS: BP 133/55
== END 2020-08-08 18:50 | disposition home health service (06) | DRG 177 ==
LOC: M.ERS 10:11 → M.TBA-ER 12:10 → M.ORTHSURG 12:10
PROVIDERS: Family Medicine; ADMIT Internal Medicine; ATTEND Internal Medicine
DX: U07.1 COVID-19 (principal); E43 Unspecified severe protein-calorie malnutrition; J12.82 Pneumonia due to coronavirus disease 2019; R65.10 Systemic inflammatory response syndrome (SIRS) of non-infectious origin without acute organ dysfunction; G40.909 Epilepsy, unspecified, not intractable, without status epilepticus; M81.0 Age-related osteoporosis without current pathological fracture; N18.30 Chronic kidney disease, stage 3 unspecified; G62.9 Polyneuropathy, unspecified; M47.896 Other spondylosis, lumbar region; M10.9 Gout, unspecified; F44.4 Conversion disorder with motor symptom or deficit; Z87.311 Personal history of (healed) other pathological fracture; Z85.3 Personal history of malignant neoplasm of breast; Z90.11 Acquired absence of right breast and nipple; Z87.891 Personal history of nicotine dependence; Z68.20 Body mass index [BMI] 20.0-20.9, adult; Z79.899 Other long term (current) drug therapy

== ENCOUNTER 2020-09-16 11:53 | Emergency (ER) | payer OTHER ==
[~2020-09-16] VITALS: Ht 152.4 cm; Wt 53.1 kg
[2020-09-16 12:09] LABS: URINE BILIRUBIN NEGATIVE (Negative); URINE BLOOD 1+ (Negative); URINE CLARITY CLEAR; URINE COLOR YELLOW; URINE GLUCOSE-RANDOM NEGATIVE (Negative); URINE KETONES NEGATIVE (Negative); URINE NITRITE-REFLEX NEGATIVE (Negative); URINE PROTEIN TRACE (Negative); URINE UROBILINOGEN 0.2 E.U./dl (0.2-1.0)
[2020-09-16 12:10] LABS: URINE LEUKOCYTES-REFLEX 3+ (Negative)
[2020-09-16 12:19] LABS: CASTS None Seen /LPF (None Seen); MUCUS 0-3 Light strn/LPF (None Seen); SQUAMOUS 0-3 Few /LPF (0-3); URINE RBC 3-10 Few /HPF (0-2)
[2020-09-16 12:20] LABS: CRYSTALS None Seen /LPF (None Seen)
[2020-09-16] MEDS ORDERED: MACROBID 100 M100 M1 PO (12:52)
[2020-09-16 12:58] VITALS: BP 134/66
== END 2020-09-16 12:58 | disposition home or self-care (01) ==
LOC: M.ERS 11:53
PROVIDERS: Nurse Practitioner Family
DX: N39.0 Urinary tract infection, site not specified (principal); N18.30 Chronic kidney disease, stage 3 unspecified; Z87.891 Personal history of nicotine dependence; Z86.2 Personal history of diseases of the blood and blood-forming organs and certain disorders involving the immune mechanism; Z85.3 Personal history of malignant neoplasm of breast; Z90.11 Acquired absence of right breast and nipple; Z87.440 Personal history of urinary (tract) infections

== ENCOUNTER → 2020-12-23 | Outpatient (CLI) | payer OTHER ==
[~2020-12-23] MED LIST changes: +MACROBID 100 M100 M1 PO
== END ==
LOC: M.ULTRA 09:53
PROVIDERS: ATTEND Otolaryngology
DX: E04.2 Nontoxic multinodular goiter (principal)

== ENCOUNTER → 2021-01-06 | Outpatient (CLI) | payer OTHER | END | disposition home or self-care (01) | LOC: M.ULTRA 08:30 | PROVIDERS: ATTEND Otolaryngology | DX: E04.1 Nontoxic single thyroid nodule (principal); D64.9 Anemia, unspecified; N18.30 Chronic kidney disease, stage 3 unspecified; M10.9 Gout, unspecified; M81.0 Age-related osteoporosis without current pathological fracture; Z98.890 Other specified postprocedural states; Z79.899 Other long term (current) drug therapy; Z85.3 Personal history of malignant neoplasm of breast; Z87.891 Personal history of nicotine dependence ==

== ENCOUNTER 2021-08-10 13:15 | Emergency (ER) | payer OTHER ==
[~2021-08-10] VITALS: Ht 162.6 cm; Wt 54.4 kg
[2021-08-10 15:42] LABS: URINE BILIRUBIN NEGATIVE (Negative); URINE BLOOD TRACE (Negative); URINE CLARITY CLEAR; URINE COLOR YELLOW; URINE GLUCOSE-RANDOM NEGATIVE (Negative); URINE KETONES NEGATIVE (Negative); URINE NITRITE-REFLEX NEGATIVE (Negative); URINE PROTEIN NEGATIVE (Negative); URINE SPECIFIC GRAVITY <= 1.005 (1.005-1.030); URINE UROBILINOGEN 0.2 E.U./dl (0.2-1.0)
[2021-08-10 15:43] LABS: URINE LEUKOCYTES-REFLEX 3+ (Negative)
[2021-08-10 15:50] LABS: CASTS None Seen /LPF (None Seen); CRYSTALS None Seen /LPF (None Seen); SQUAMOUS 4-10 Moderate /LPF (0-3); URINE RBC 3-10 Few /HPF (0-2)
[2021-08-10] MEDS ORDERED: MACROBID 100 M100 M1 PO (16:09)
[2021-08-10 16:15] LABS: ABSOLUTE BASOPHILS 0.1 thou/uL (0.0-0.2); ABSOLUTE EOSINOPHILS 0.2 thou/uL (0.0-0.7); ABSOLUTE LYMPHOCYTES 4.8 thou/uL (0.8-5.3); ABSOLUTE MONOCYTES 0.7 thou/uL (0.0-1.2); ABSOLUTE NEUTROPHILS 3.7 thou/uL (1.6-8.1); BASOPHILS 1.5 %; EOSINOPHILS 1.7 %; HEMATOCRIT 37.6 % (37.0-47.0); HEMOGLOBIN 12.4 gm/dL (12.0-15.0); LYMPHOCYTES 50.5 %; MCH 34.9 pg (26.0-34.0); MCV 105.9 fL (80.0-100.0); MONOCYTES 7.1 %; MPV 9.6 fl. (7.2-11.1); NUCLEATED RBCS 0 /100WBC; PLATELET COUNT* 108 thou/uL (150-400); POLYS 39.2 %; RBC 3.55 mil/uL (4.20-5.00); RDW-CV 14.7 % (10.5-14.5); WBC 9.5 thou/uL (4.0-11.0)
[2021-08-10 16:23] LABS: CALCIUM 8.8 mg/dL (8.5-10.1); CREATININE 1.1 mg/dL (0.6-1.3)
[2021-08-10 16:26] LABS: POTASSIUM 2.9 mmol/L (3.5-5.1)
[2021-08-10 16:28] LABS: ALBUMIN 3.3 g/dL (3.4-5.0); TOTAL BILIRUBIN 0.5 mg/dL (<0.1-1.0); TOTAL PROTEIN 7.2 g/dL (6.4-8.2)
[2021-08-10 17:10] VITALS: BP 141/62
== END 2021-08-10 17:11 | disposition home or self-care (01) ==
LOC: M.ERS 13:15
PROVIDERS: Family Medicine
DX: N39.0 Urinary tract infection, site not specified (principal); E87.6 Hypokalemia; G40.909 Epilepsy, unspecified, not intractable, without status epilepticus; M81.0 Age-related osteoporosis without current pathological fracture; N18.30 Chronic kidney disease, stage 3 unspecified; G62.9 Polyneuropathy, unspecified; Z90.89 Acquired absence of other organs; Z85.3 Personal history of malignant neoplasm of breast; Z79.2 Long term (current) use of antibiotics; Z79.899 Other long term (current) drug therapy; Z87.891 Personal history of nicotine dependence